=== PATIENT | female | born 1945 | race Caucasian/White ===

== ENCOUNTER → 2023-12-16 | Outpatient (CLI) | payer OTHER, SELFPAY ==
[2023-12-16 09:09] LABS: Basophils % (Auto) 1 % (0-2.5); Eosinophils # (Auto) 0.1 Thou/mm3 (0.0-0.5); Eosinophils % (Auto) 1 % (0-10); Hematocrit 41.5 % (36.0-46.0); Hemoglobin 13.5 g/dL (12.0-16.0); Immature Granulocytes % (Auto) 0 % (0-0); Immature Granulocytes Auto 0.01 Thou/mm3 (0.00-0.00); Immature Reticulocyte Fraction 13.1 % (3.0-15.9); Lymphocytes # (Auto) 1.2 Thou/mm3 (1.0-4.8); Lymphocytes % (Auto) 25 % (10-50); Mean Corpuscular HGB Conc 32.5 g/dl (31.0-37.0); Mean Corpuscular Hemoglobin 30.9 pg (25.0-35.0); Mean Corpuscular Volume 95 fL (80-100); Monocytes # (Auto) 0.3 Thou/mm3 (0.0-0.8); Monocytes % (Auto) 6 % (0-12); Neutrophils # (Auto) 3.3 Thou/mm3 (1.8-7.7); Neutrophils % (Auto) 68 % (37-80); Nucleated Red Blood Cell % 0 /100 WBC (0); Platelet Count 170 Thou/mm3 (140-440); RDW Standard Deviation 54.3 fL (36.4-46.3); Red Blood Count 4.37 Miln/mm3 (4.00-5.20); Reticulocyte % (Auto) 1.4 % (0.5-1.5); Reticulocyte Absolute Auto 59.4 Biln/L (25.0-75.0); Reticulocyte Hgb Content 35.2 pg (28.0-35.0); White Blood Count 4.9 Thou/mm3 (3.6-11.0)
[2023-12-16 09:41] LABS: Alanine Aminotransferase 9 U/L (10-49); Albumin, Serum 4.4 gm/dL (3.4-4.8); Albumin/Globulin Ratio 1.7 (1.2-2.2); Alkaline Phosphatase 44 U/L (46-116); Anion Gap 4 (7-16); Aspartate Amino Transferase 21 U/L (0-34); BUN/Creatinine Ratio 18 Ratio (12-20); Bilirubin,Total 0.6 mg/dL (0.3-1.2); Blood Urea Nitrogen 14 mg/dL (9-23); Calcium 9.7 mg/dL (8.3-10.6); Calcium (Corrected) 9.7 mg/dL (8.5-10.1); Carbon Dioxide 29.9 mMol/L (20.0-31.0); Chloride 105 mMol/L (98-107); Creatinine (Component) 0.8 mg/dL (0.6-1.3); Globulin 2.6 gm/dL (2.3-3.5); Glucose 119 mg/dL (74-106); Osmolality,Calculated 279 (275-295); Potassium 4.2 mMol/L (3.4-5.1); Sodium 139 mMol/L (136-145); eGFR > 60 See Note
[2023-12-16 09:42] LABS: Folate 17.09 ng/mL (>5.38); Vitamin B12 1248 pg/mL (211-911)
[2023-12-16 10:19] LABS: Ferritin 15 ng/mL (7.3-270.7); Iron 228 mcg/dL (50-170); Percent Iron Saturation 65 % (20-55); Total Iron Binding Capacity 347 mcg/dL (250-425); Unsaturated Iron Binding 119 (225-295)
== END | disposition home or self-care (01) ==
PROVIDERS: PCP Internal Medicine; Referring Provider Nurse Practitioner Family; Visit Provider Nurse Practitioner Family
DX: C50.212 Malignant neoplasm of upper-inner quadrant of left female breast (principal)
CPT/HCPCS: 36415; 80053; 82607; 82728; 82746; 83540; 83550; 85025; 85046

== ENCOUNTER 2023-12-17 11:23 | Outpatient (RCR) | payer OTHER, SELFPAY | END 2024-01-10 23:59 | disposition home or self-care (01) | LOC: SCTC 11:23 | PROVIDERS: PCP Internal Medicine; Referring Provider Internal Medicine; Visit Provider Nurse Practitioner Family | DX: D50.9 Iron deficiency anemia, unspecified (principal); C50.212 Malignant neoplasm of upper-inner quadrant of left female breast; Z17.0 Estrogen receptor positive status [ER+]; Z17.21 Progesterone receptor positive status; Z17.32 Human epidermal growth factor receptor 2 negative status; K64.9 Unspecified hemorrhoids; Z79.810 Long term (current) use of selective estrogen receptor modulators (SERMs); M85.88 Other specified disorders of bone density and structure, other site; I10 Essential (primary) hypertension; Z86.2 Personal history of diseases of the blood and blood-forming organs and certain disorders involving the immune mechanism | CPT/HCPCS: 99212; G0463 ==

== ENCOUNTER → 2024-02-16 | Outpatient (CLI) | payer OTHER, SELFPAY ==
[2024-02-16 12:06] LABS: Basophils % (Auto) 1 % (0-2.5); Eosinophils % (Auto) 1 % (0-10); Hematocrit 37.7 % (36.0-46.0); Hemoglobin 12.5 g/dL (12.0-16.0); Immature Granulocytes % (Auto) 0 % (0-0); Immature Granulocytes Auto 0.01 Thou/mm3 (0.00-0.00); Immature Reticulocyte Fraction 11.1 % (3.0-15.9); Lymphocytes # (Auto) 1.5 Thou/mm3 (1.0-4.8); Lymphocytes % (Auto) 18 % (10-50); Mean Corpuscular HGB Conc 33.2 g/dl (31.0-37.0); Mean Corpuscular Hemoglobin 31.3 pg (25.0-35.0); Mean Corpuscular Volume 95 fL (80-100); Monocytes # (Auto) 0.4 Thou/mm3 (0.0-0.8); Monocytes % (Auto) 5 % (0-12); Neutrophils # (Auto) 6.7 Thou/mm3 (1.8-7.7); Neutrophils % (Auto) 77 % (37-80); Nucleated Red Blood Cell % 0 /100 WBC (0); Platelet Count 124 Thou/mm3 (140-440); RDW Standard Deviation 46.1 fL (36.4-46.3); Red Blood Count 3.99 Miln/mm3 (4.00-5.20); Reticulocyte % (Auto) 1.5 % (0.5-1.5); Reticulocyte Absolute Auto 58.3 Biln/L (25.0-75.0); Reticulocyte Hgb Content 32.2 pg (28.0-35.0); White Blood Count 8.7 Thou/mm3 (3.6-11.0)
[2024-02-16 13:02] LABS: Alanine Aminotransferase 8 U/L (10-49); Albumin, Serum 4.1 gm/dL (3.4-4.8); Albumin/Globulin Ratio 1.8 (1.2-2.2); Alkaline Phosphatase 47 U/L (46-116); Anion Gap 7 (7-16); Aspartate Amino Transferase 18 U/L (0-34); BUN/Creatinine Ratio 18 Ratio (12-20); Bilirubin,Total 0.5 mg/dL (0.3-1.2); Blood Urea Nitrogen 16 mg/dL (9-23); Chloride 104 mMol/L (98-107); Creatinine (Component) 0.9 mg/dL (0.6-1.3); Globulin 2.3 gm/dL (2.3-3.5); Glucose 172 mg/dL (74-106); Osmolality,Calculated 280 (275-295); Potassium 4.4 mMol/L (3.4-5.1); Sodium 138 mMol/L (136-145); Total Protein 6.4 gm/dL (5.7-8.2); eGFR > 60 See Note
[2024-02-16 15:49] LABS: Ferritin 13 ng/mL (7.3-270.7); Total Iron Binding Capacity 351 mcg/dL (250-425)
[2024-02-16 15:59] LABS: Iron 54 mcg/dL (50-170); Percent Iron Saturation 15 % (20-55); Unsaturated Iron Binding 297 (225-295)
[2024-02-18 03:30] LABS: Folate 18.16 ng/mL (>5.38); Vitamin B12 400 pg/mL (211-911)
== END | disposition home or self-care (01) ==
LOC: SCTO 11:05
PROVIDERS: PCP Internal Medicine; Referring Provider Nurse Practitioner Family; Visit Provider Nurse Practitioner Family
DX: C50.212 Malignant neoplasm of upper-inner quadrant of left female breast (principal)
CPT/HCPCS: 36415; 80053; 82607; 82728; 82746; 83540; 83550; 85025; 85046

== ENCOUNTER 2024-02-17 10:25 | Outpatient (RCR) | payer OTHER, SELFPAY | END 2024-03-12 23:59 | disposition home or self-care (01) | LOC: SCTC 10:25 | PROVIDERS: PCP Internal Medicine; Referring Provider Internal Medicine; Visit Provider Nurse Practitioner Family | DX: C50.212 Malignant neoplasm of upper-inner quadrant of left female breast (principal); Z17.0 Estrogen receptor positive status [ER+]; Z17.21 Progesterone receptor positive status; Z17.32 Human epidermal growth factor receptor 2 negative status; Z90.12 Acquired absence of left breast and nipple; Z79.810 Long term (current) use of selective estrogen receptor modulators (SERMs); D50.9 Iron deficiency anemia, unspecified; K64.9 Unspecified hemorrhoids; K20.90 Esophagitis, unspecified without bleeding; M85.88 Other specified disorders of bone density and structure, other site; D69.6 Thrombocytopenia, unspecified | CPT/HCPCS: 99212; G0463 ==

== ENCOUNTER → 2024-04-21 | Outpatient (CLI) | payer OTHER, SELFPAY ==
[2024-04-21 08:33] LABS: Basophils % (Auto) 1 % (0-2.5); Eosinophils # (Auto) 0.1 Thou/mm3 (0.0-0.5); Eosinophils % (Auto) 3 % (0-10); Hematocrit 37.8 % (36.0-46.0); Hemoglobin 12.1 g/dL (12.0-16.0); Immature Granulocytes % (Auto) 0 % (0-0); Immature Granulocytes Auto 0.01 Thou/mm3 (0.00-0.00); Lymphocytes # (Auto) 1.3 Thou/mm3 (1.0-4.8); Lymphocytes % (Auto) 30 % (10-50); Mean Corpuscular Hemoglobin 30.5 pg (25.0-35.0); Mean Corpuscular Volume 95 fL (80-100); Monocytes # (Auto) 0.3 Thou/mm3 (0.0-0.8); Monocytes % (Auto) 7 % (0-12); Neutrophils # (Auto) 2.6 Thou/mm3 (1.8-7.7); Neutrophils % (Auto) 58 % (37-80); Nucleated Red Blood Cell % 0 /100 WBC (0); Platelet Count 159 Thou/mm3 (140-440); RDW Standard Deviation 49.1 fL (36.4-46.3); Red Blood Count 3.97 Miln/mm3 (4.00-5.20); White Blood Count 4.4 Thou/mm3 (3.6-11.0)
[2024-04-21 08:49] LABS: Folate 12.26 ng/mL (>5.38); Vitamin B12 659 pg/mL (211-911)
[2024-04-21 08:55] LABS: Ferritin 14 ng/mL (7.3-270.7); Iron 106 mcg/dL (50-170); Percent Iron Saturation 31 % (20-55); Total Iron Binding Capacity 340 mcg/dL (250-425); Unsaturated Iron Binding 234 (225-295)
[2024-04-21 09:07] LABS: Alanine Aminotransferase < 7 U/L (10-49); Albumin, Serum 3.8 gm/dL (3.4-4.8); Albumin/Globulin Ratio 1.7 (1.2-2.2); Alkaline Phosphatase 48 U/L (46-116); Anion Gap 7 (7-16); Aspartate Amino Transferase 19 U/L (0-34); BUN/Creatinine Ratio 21 Ratio (12-20); Bilirubin,Total 0.4 mg/dL (0.3-1.2); Blood Urea Nitrogen 17 mg/dL (9-23); Calcium 8.8 mg/dL (8.3-10.6); Carbon Dioxide 26.7 mMol/L (20.0-31.0); Chloride 108 mMol/L (98-107); Creatinine (Component) 0.8 mg/dL (0.6-1.3); Globulin 2.3 gm/dL (2.3-3.5); Glucose 100 mg/dL (74-106); Osmolality,Calculated 284 (275-295); Potassium 4.1 mMol/L (3.4-5.1); Sodium 142 mMol/L (136-145); Total Protein 6.1 gm/dL (5.7-8.2); eGFR > 60 See Note
== END | disposition home or self-care (01) ==
LOC: COPL 07:26
PROVIDERS: PCP Nurse Practitioner Family; Referring Provider Nurse Practitioner Family; Visit Provider Nurse Practitioner Family
DX: C50.212 Malignant neoplasm of upper-inner quadrant of left female breast (principal)
CPT/HCPCS: 36415; 80053; 82607; 82728; 82746; 83540; 83550; 85025

== ENCOUNTER 2024-04-26 09:35 | Outpatient (RCR) | payer OTHER, SELFPAY | END 2024-05-10 23:59 | disposition home or self-care (01) | LOC: SCTC 09:35 | PROVIDERS: PCP Internal Medicine; Referring Provider Nurse Practitioner Family; Visit Provider Nurse Practitioner Family | DX: C50.212 Malignant neoplasm of upper-inner quadrant of left female breast (principal); Z17.0 Estrogen receptor positive status [ER+]; Z17.21 Progesterone receptor positive status; Z17.32 Human epidermal growth factor receptor 2 negative status; Z90.12 Acquired absence of left breast and nipple; Z79.810 Long term (current) use of selective estrogen receptor modulators (SERMs); K64.9 Unspecified hemorrhoids; M85.88 Other specified disorders of bone density and structure, other site; Z86.2 Personal history of diseases of the blood and blood-forming organs and certain disorders involving the immune mechanism | CPT/HCPCS: 99212; G0463 ==

== ENCOUNTER → 2024-06-10 | Outpatient (CLI) | payer OTHER, SELFPAY ==
[2024-06-10 08:41] LABS: Basophils # (Auto) 0.1 Thou/mm3 (0.0-0.2); Basophils % (Auto) 1 % (0-2.5); Eosinophils # (Auto) 0.1 Thou/mm3 (0.0-0.5); Eosinophils % (Auto) 3 % (0-10); Hematocrit 37.8 % (36.0-46.0); Hemoglobin 12.5 g/dL (12.0-16.0); Immature Granulocytes % (Auto) 0 % (0-0); Immature Reticulocyte Fraction 13.3 % (3.0-15.9); Lymphocytes # (Auto) 1.7 Thou/mm3 (1.0-4.8); Lymphocytes % (Auto) 39 % (10-50); Mean Corpuscular HGB Conc 33.1 g/dl (31.0-37.0); Mean Corpuscular Hemoglobin 30.6 pg (25.0-35.0); Mean Corpuscular Volume 92 fL (80-100); Monocytes # (Auto) 0.4 Thou/mm3 (0.0-0.8); Monocytes % (Auto) 9 % (0-12); Neutrophils # (Auto) 2.1 Thou/mm3 (1.8-7.7); Neutrophils % (Auto) 49 % (37-80); Nucleated Red Blood Cell % 0 /100 WBC (0); Platelet Count 153 Thou/mm3 (140-440); Red Blood Count 4.09 Miln/mm3 (4.00-5.20); Reticulocyte % (Auto) 1.3 % (0.5-1.5); Reticulocyte Hgb Content 33.3 pg (28.0-35.0); White Blood Count 4.3 Thou/mm3 (3.6-11.0)
[2024-06-10 09:00] LABS: Ferritin 8 ng/mL (7.3-270.7); Folate 12.82 ng/mL (>5.38); Iron 43 mcg/dL (50-170); Percent Iron Saturation 11 % (20-55); Total Iron Binding Capacity 360 mcg/dL (250-425); Unsaturated Iron Binding 317 (225-295); Vitamin B12 454 pg/mL (211-911)
[2024-06-10 09:11] LABS: Alanine Aminotransferase < 7 U/L (10-49); Albumin, Serum 3.8 gm/dL (3.4-4.8); Albumin/Globulin Ratio 1.5 (1.2-2.2); Alkaline Phosphatase 55 U/L (46-116); Anion Gap 6 (7-16); Aspartate Amino Transferase 19 U/L (0-34); BUN/Creatinine Ratio 20 Ratio (12-20); Bilirubin,Total 0.4 mg/dL (0.3-1.2); Blood Urea Nitrogen 14 mg/dL (9-23); Calcium 9.1 mg/dL (8.3-10.6); Calcium (Corrected) 9.3 mg/dL (8.5-10.1); Carbon Dioxide 28.4 mMol/L (20.0-31.0); Chloride 109 mMol/L (98-107); Creatinine (Component) 0.7 mg/dL (0.6-1.3); Globulin 2.6 gm/dL (2.3-3.5); Glucose 106 mg/dL (74-106); Osmolality,Calculated 285 (275-295); Potassium 4.4 mMol/L (3.4-5.1); Sodium 143 mMol/L (136-145); Total Protein 6.4 gm/dL (5.7-8.2); eGFR > 60 See Note
== END | disposition home or self-care (01) ==
LOC: SCTO 07:07
PROVIDERS: PCP Internal Medicine; Referring Provider Nurse Practitioner Family; Visit Provider Nurse Practitioner Family
DX: C50.212 Malignant neoplasm of upper-inner quadrant of left female breast (principal)
CPT/HCPCS: 36415; 80053; 82607; 82728; 82746; 83540; 83550; 85025; 85046

== ENCOUNTER 2024-06-16 10:54 | Outpatient (RCR) | payer OTHER, SELFPAY | END 2024-07-10 23:59 | disposition home or self-care (01) | LOC: SCTC 10:54 | PROVIDERS: PCP Internal Medicine; Referring Provider Internal Medicine; Visit Provider Nurse Practitioner Family | DX: C50.212 Malignant neoplasm of upper-inner quadrant of left female breast (principal); Z17.0 Estrogen receptor positive status [ER+]; Z17.21 Progesterone receptor positive status; Z17.32 Human epidermal growth factor receptor 2 negative status; D50.9 Iron deficiency anemia, unspecified; M85.80 Other specified disorders of bone density and structure, unspecified site; Z79.810 Long term (current) use of selective estrogen receptor modulators (SERMs) | CPT/HCPCS: 99212; G0463 ==

== ENCOUNTER → 2024-07-27 | Outpatient (CLI) | payer OTHER, SELFPAY ==
[2024-07-27 08:36] LABS: Basophils % (Auto) 1 % (0-2.5); Eosinophils # (Auto) 0.1 Thou/mm3 (0.0-0.5); Eosinophils % (Auto) 2 % (0-10); Hematocrit 36.8 % (36.0-46.0); Hemoglobin 12.1 g/dL (12.0-16.0); Immature Granulocytes % (Auto) 0 % (0-0); Immature Granulocytes Auto 0.01 Thou/mm3 (0.00-0.00); Immature Reticulocyte Fraction 15.1 % (3.0-15.9); Lymphocytes # (Auto) 1.5 Thou/mm3 (1.0-4.8); Lymphocytes % (Auto) 33 % (10-50); Mean Corpuscular HGB Conc 32.9 g/dl (31.0-37.0); Mean Corpuscular Hemoglobin 30.6 pg (25.0-35.0); Mean Corpuscular Volume 93 fL (80-100); Monocytes # (Auto) 0.3 Thou/mm3 (0.0-0.8); Monocytes % (Auto) 7 % (0-12); Neutrophils # (Auto) 2.6 Thou/mm3 (1.8-7.7); Neutrophils % (Auto) 57 % (37-80); Nucleated Red Blood Cell % 0 /100 WBC (0); Platelet Count 162 Thou/mm3 (140-440); RDW Standard Deviation 49.7 fL (36.4-46.3); Red Blood Count 3.95 Miln/mm3 (4.00-5.20); Reticulocyte % (Auto) 1.6 % (0.5-1.5); Reticulocyte Absolute Auto 61.2 Biln/L (25.0-75.0); Reticulocyte Hgb Content 33.8 pg (28.0-35.0); White Blood Count 4.6 Thou/mm3 (3.6-11.0)
[2024-07-27 08:52] LABS: Ferritin 10 ng/mL (7.3-270.7); Iron 83 mcg/dL (50-170); Percent Iron Saturation 23 % (20-55); Total Iron Binding Capacity 359 mcg/dL (250-425); Unsaturated Iron Binding 276 (225-295)
[2024-07-27 08:53] LABS: Folate 13.84 ng/mL (>5.38); Vitamin B12 1305 pg/mL (211-911)
[2024-07-27 09:19] LABS: Alanine Aminotransferase < 7 U/L (10-49); Albumin, Serum 3.7 gm/dL (3.4-4.8); Albumin/Globulin Ratio 1.5 (1.2-2.2); Alkaline Phosphatase 45 U/L (46-116); Anion Gap 10 (7-16); Aspartate Amino Transferase 25 U/L (0-34); BUN/Creatinine Ratio 13 Ratio (12-20); Bilirubin,Total 0.4 mg/dL (0.3-1.2); Blood Urea Nitrogen 10 mg/dL (9-23); Calcium 8.8 mg/dL (8.3-10.6); Carbon Dioxide 25.1 mMol/L (20.0-31.0); Chloride 107 mMol/L (98-107); Creatinine (Component) 0.8 mg/dL (0.6-1.3); Globulin 2.4 gm/dL (2.3-3.5); Glucose 104 mg/dL (74-106); Osmolality,Calculated 282 (275-295); Potassium 4.9 mMol/L (3.4-5.1); Sodium 142 mMol/L (136-145); Total Protein 6.1 gm/dL (5.7-8.2); eGFR > 60 See Note
== END | disposition home or self-care (01) ==
LOC: SCTO 07:29
PROVIDERS: PCP Internal Medicine; Referring Provider Nurse Practitioner Family; Visit Provider Nurse Practitioner Family
DX: C50.212 Malignant neoplasm of upper-inner quadrant of left female breast (principal)
CPT/HCPCS: 36415; 80053; 82607; 82728; 82746; 83540; 83550; 85025; 85046

== ENCOUNTER → 2024-08-09 | Outpatient (CLI) | payer OTHER, SELFPAY ==
--- NOTE | 2024-08-09 11:00 | XR_ITS ---
Examination: Screening digital mammography, unilateral right Computer aided detection 3-D breast Tomosynthesis, unilateral Date and time of exam: August 09, 2024 1038 hours Compared to mammograms dating to April 30, 2018 Indication: Screening Technique: Nonmagnified MLO, CC views of the right breast to been obtained, reconstructed from 3-D Tomosynthesis images. R2 computer aided detection program utilized for evaluation of suspicious masses and/or abnormal calcifications. 3-D Tomosynthesis images obtained. Findings: The breast is heterogeneously dense, which may obscure small masses 15 mm focal asymmetry outer right breast anterior depth Breast biopsy marker retroareolar region right breast Impression: BI-RADS Category 0: Incomplete: Need additional imaging evaluation Recommend follow-up spot tomographic views of 15 mm focal asymmetry outer right breast anterior depth as well as right breast sonography to complete the workup.
== END | disposition home or self-care (01) ==
LOC: CDIM 10:26
PROVIDERS: Referring Provider Nurse Practitioner Family; Visit Provider Nurse Practitioner Family
DX: Z12.31 Encounter for screening mammogram for malignant neoplasm of breast (principal); N64.89 Other specified disorders of breast; C50.212 Malignant neoplasm of upper-inner quadrant of left female breast
CPT/HCPCS: 77063; 77067

== ENCOUNTER 2024-08-18 08:45 | Outpatient (RCR) | payer OTHER, SELFPAY | END 2024-09-09 23:59 | disposition home or self-care (01) | LOC: SCTC 08:45 | PROVIDERS: PCP Internal Medicine; Referring Provider Internal Medicine; Visit Provider Nurse Practitioner Family | DX: C50.212 Malignant neoplasm of upper-inner quadrant of left female breast (principal); Z17.0 Estrogen receptor positive status [ER+]; Z17.21 Progesterone receptor positive status; Z17.32 Human epidermal growth factor receptor 2 negative status; Z90.12 Acquired absence of left breast and nipple; Z79.810 Long term (current) use of selective estrogen receptor modulators (SERMs); Z86.2 Personal history of diseases of the blood and blood-forming organs and certain disorders involving the immune mechanism; M85.88 Other specified disorders of bone density and structure, other site | CPT/HCPCS: 99212; G0463 ==

== ENCOUNTER → 2024-09-14 | Outpatient (CLI) | payer OTHER, SELFPAY ==
[2024-09-14 09:28] LABS: Albumin, Serum 4.3 gm/dL (3.4-4.8); Anion Gap 9 (7-16); BUN/Creatinine Ratio 20 Ratio (12-20); Blood Urea Nitrogen 14 mg/dL (9-23); Calcium 9.9 mg/dL (8.3-10.6); Calcium (Corrected) 9.9 mg/dL (8.5-10.1); Carbon Dioxide 27.3 mMol/L (20.0-31.0); Chloride 108 mMol/L (98-107); Creatinine (Component) 0.7 mg/dL (0.6-1.3); Glucose 106 mg/dL (74-106); Osmolality,Calculated 287 (275-295); Phosphorous 3.6 mg/dL (2.4-5.1); Potassium 4.0 mMol/L (3.4-5.1); Sodium 144 mMol/L (136-145); eGFR > 60 See Note
[2024-09-14 09:29] LABS: Parathyroid Hormone Intact 56.1 pg/ml (18.5-88.0)
[2024-09-14 11:28] LABS: Basophils # (Auto) 0.1 Thou/mm3 (0.0-0.2); Basophils % (Auto) 1 % (0-2.5); Eosinophils # (Auto) 0.1 Thou/mm3 (0.0-0.5); Eosinophils % (Auto) 2 % (0-10); Hematocrit 43.5 % (36.0-46.0); Hemoglobin 13.6 g/dL (12.0-16.0); Immature Granulocytes Auto 0.01 Thou/mm3 (0.00-0.00); Lymphocytes # (Auto) 2.2 Thou/mm3 (1.0-4.8); Lymphocytes % (Auto) 35 % (10-50); Mean Corpuscular HGB Conc 31.3 g/dl (31.0-37.0); Mean Corpuscular Hemoglobin 30.1 pg (25.0-35.0); Mean Corpuscular Volume 96 fL (80-100); Monocytes # (Auto) 0.4 Thou/mm3 (0.0-0.8); Monocytes % (Auto) 7 % (0-12); Neutrophils # (Auto) 3.5 Thou/mm3 (1.8-7.7); Neutrophils % (Auto) 55 % (37-80); Nucleated Red Blood Cell # 0.00 Thou/mm3 (0.00-0.00); Nucleated Red Blood Cell % 0 /100 WBC (0); Platelet Count 140 Thou/mm3 (140-440); RDW Standard Deviation 52.5 fL (36.4-46.3); Red Blood Count 4.52 Miln/mm3 (4.00-5.20); White Blood Count 6.4 Thou/mm3 (3.6-11.0)
== END | disposition home or self-care (01) ==
LOC: COPL 07:52
PROVIDERS: PCP Internal Medicine; Referring Provider Internal Medicine; Visit Provider Internal Medicine
DX: E21.0 Primary hyperparathyroidism (principal); I10 Essential (primary) hypertension
CPT/HCPCS: 36415; 80069; 83970; 85025

== ENCOUNTER 2024-09-21 09:02 | Outpatient (RCR) | payer OTHER, SELFPAY | END 2024-10-10 23:59 | disposition home or self-care (01) | LOC: SCTC 09:02 | PROVIDERS: PCP Internal Medicine; Referring Provider Internal Medicine; Visit Provider Nurse Practitioner Family | DX: C50.212 Malignant neoplasm of upper-inner quadrant of left female breast (principal); Z17.0 Estrogen receptor positive status [ER+]; Z17.21 Progesterone receptor positive status; Z17.32 Human epidermal growth factor receptor 2 negative status; Z90.12 Acquired absence of left breast and nipple; Z79.810 Long term (current) use of selective estrogen receptor modulators (SERMs); Z86.2 Personal history of diseases of the blood and blood-forming organs and certain disorders involving the immune mechanism; H91.90 Unspecified hearing loss, unspecified ear; M85.88 Other specified disorders of bone density and structure, other site | CPT/HCPCS: 99212; G0463 ==

== ENCOUNTER → 2024-11-16 | Outpatient (CLI) | payer OTHER, SELFPAY ==
--- NOTE | 2024-11-16 09:00 | XR_ITS ---
Examination: Breast ultrasound, unilateral, right Date and time of exam: November 16, 2024, 0955 hours INDICATIONS: Mammogram August 09, 2024 mm focal asymmetry outer right breast anterior depth Technique: Real-time sahu scale ultrasonographic imaging performed right breast including all 4 quadrants as well as nipple retroareolar and axillary region. Findings: 10:00 nodule lobular margins 7 x 5 mm IMPRESSION: BI-RADS Category 3: Probably benign findings 1 additional 6-month right breast sonogram follow-up is needed to document stability of right breast nodule described above
--- NOTE | 2024-11-16 09:30 | XR_ITS ---
Examination: Diagnostic digital mammography, unilateral, right Computer aided detection 3-D breast Tomosynthesis, unilateral Date and time of exam: December 09, 2024, 1038 hours INDICATIONS: Mammogram August 09, 2024 15 mm focal asymmetry outer right breast anterior depth Technique: Nonmagnified MLO, CC views of the right breast have been obtained, reconstructed from 3-D Tomosynthesis images. R2 computer aided detection program utilized for evaluation of suspicious masses and/or abnormal calcifications. 3-D Tomosynthesis images obtained. Findings: The breast is heterogeneously dense, which may obscure small masses No suspicious masses depicted on the spot compression views Impression: BI-RADS category 2: Benign findings Recommend yearly follow-up mammography Please see the right breast report and recommendations today, recommend 6-month right breast sonogram
== END | disposition home or self-care (01) ==
LOC: CDIM 09:21
PROVIDERS: Referring Provider Nurse Practitioner Family; Visit Provider Nurse Practitioner Family
DX: R92.321 Mammographic fibroglandular density, right breast (principal); N63.11 Unspecified lump in the right breast, upper outer quadrant; C50.212 Malignant neoplasm of upper-inner quadrant of left female breast
CPT/HCPCS: 76641; 77061; 77065; G0279

== ENCOUNTER 2024-12-13 21:17 | Emergency (ER) | payer OTHER, SELFPAY ==
[2024-12-13 21:17] VITALS: BMI 27.2
[2024-12-13 22:00] VITALS: BP 153/80; PULSE 80; RESP 18; TEMP 36.6; O2SAT 95
--- NOTE | 2024-12-13 22:16 | XR_ITS ---
EXAMINATION: PA chest single view: TECHNIQUE: Upright PA chest single view Date and time: November 11, 2024: 10:39 p.m. INDICATIONS: Chest pain today. FINDINGS: Herniation of a major portion of the stomach into the hemithorax Mild enlargement cardiac contour Epidural spinal leads No pneumonia or pulmonary edema IMPRESSION: Large retrocardiac gastric hernia
--- NOTE | 2024-12-13 22:16 | EKG_ITS ---
[facility] Test Date: 2024-12-13 Pat Name: NORMAN FELDER Department: Room: - Gender: Female Business Support Professional: : 1945 Requested By: Madhu Schwartz Order Number: [id number] Reading MD: Madhu Schwartz Measurements Intervals [place] Rate: 81 P: 41 ME: 155 QRS: -65 QRSD: 138 T: 98 QT: 435 QTc: 506 Interpretive Statements SINUS RHYTHM POSSIBLE LEFT ATRIAL ENLARGEMENT [-0.1mV P-WAVE IN V1/V2] LEFT AXIS DEVIATION [QRS AXIS < -30] INTRAVENTRICULAR CONDUCTION DELAY [130+ ms QRS DURATION] LEFT VENTRICULAR HYPERTROPHY AND ST-T CHANGE [VOLTAGE CRITERIA PLUS ST/T ABNORMALITY] POSSIBLE ANTERIOR MYOCARDIAL INFARCTION , OF INDETERMINATE AGE [30 ms Q WAVE IN V3/V4, OR R < 0.2 mV IN V4] Compared to ECG 11/07/2023 11:25:41 Intraventricular conduction delay now present Left ventricular hypertrophy now present ST (T wave) deviation now present Myocardial infarct finding now present Left bundle-branch block no longer present /store/S0/[id number]/ecg/[id number].pdf
--- NOTE | 2024-12-13 22:17 | EDRME_ITS ---
Rapid Medical Screening Exam RME Arrival date/time: 12/13/24 21:17 Epigastric and upper abdominal pain HPI onset approximately 3 hours ago after eating a meal. The patient is in considerable discomfort denies vomiting but son at bedside states the patient vomited several times she is acting mildly confused. Patient is on 4 medications denies diarrhea or constipation. Son informs that patient had a ulcer that was taken care of . PE: Abdomen: Patient exquisitely tender in the epigastrium with reflexive gu arding. No lower abdominal pain with palpation. There is also grimacing with pressure on the xiphoid process. Chief Complaint: Abdominal Pain Time Seen by Provider: 12/13/24 22:13 Vital signs: Vital Signs Temperature 97.9 F 12/13/24 22:00 Pulse Rate 80 12/13/24 22:00 Respiratory Rate 18 12/13/24 22:00 Blood Pressure 153/80 H 12/13/24 22:00 Pulse Oximetry (%) 95 12/13/24 22:00 Oxygen Delivery Method Room Air 12/13/24 22:00 Exam: Gastric ulcer see RME see note Clinical Impression: Gastric ulcer
[2024-12-13 22:32] LABS: Basophils # (Auto) 0.0 Thou/mm3 (0.0-0.2); Basophils % (Auto) 0 % (0-2.5); Eosinophils # (Auto) 0.0 Thou/mm3 (0.0-0.5); Eosinophils % (Auto) 0 % (0-10); Hematocrit 41.2 % (36.0-46.0); Hemoglobin 13.6 g/dL (12.0-16.0); Immature Granulocytes Auto 0.03 Thou/mm3 (0.00-0.00); Lymphocytes # (Auto) 0.9 Thou/mm3 (1.0-4.8); Lymphocytes % (Auto) 9 % (10-50); Mean Corpuscular HGB Conc 33.0 g/dl (31.0-37.0); Mean Corpuscular Hemoglobin 30.6 pg (25.0-35.0); Mean Corpuscular Volume 93 fL (80-100); Monocytes # (Auto) 0.2 Thou/mm3 (0.0-0.8); Monocytes % (Auto) 2 % (0-12); Neutrophils # (Auto) 9.8 Thou/mm3 (1.8-7.7); Neutrophils % (Auto) 89 % (37-80); Nucleated Red Blood Cell # 0.00 Thou/mm3 (0.00-0.00); Nucleated Red Blood Cell % 0 /100 WBC (0); Platelet Count 128 Thou/mm3 (140-440); RDW Standard Deviation 46.8 fL (36.4-46.3); Red Blood Count 4.45 Miln/mm3 (4.00-5.20); White Blood Count 11.1 Thou/mm3 (3.6-11.0)
--- NOTE | 2024-12-13 22:35 | XR_ITS ---
Examination: CT chest, without intravenous contrast. CT abdomen, without intravenous contrast. CT pelvis, without intravenous contrast. 2-D sagittal and coronal reconstructions. 3-D reconstructions. Date and time of exam: December 14, 2024, 0043 hours INDICATIONS: Chest pain abdominal pain vomiting beginning today CTDI vol (mgy) 5.77 DLP (MGycm) 340 Technique: Multiple CT images, 3.0 mm slice thickness, obtained chest, abdomen, pelvis, with the high-resolution 64 slice scanner.. Sagittal and coronal 2-D reconstructions are obtained. 3-D reconstructions Low dose protocols were performed. One or more of the following dose reduction techniques were used; automated exposure control, adjustment of the mA and/or KV according to patient size, use of iterative reconstruction technique. Findings: Thoracic aortic calcification no aneurysmal dilatation Pulmonary artery segments are not enlarged Large diaphragmatic defect containing stomach and colon with atelectasis in the right lower lung zone No pulmonary edema No visualized liver or splenic lesion No gallstones No pancreatic mass No renal or ureteral calculi, no hydronephrosis Aortic calcification no aneurysmal dilatation No bowel obstruction No pericecal inflammatory change Distended urinary bladder Absent uterus Severe osteopenia Severe lumbar dextroscoliosis Moderate to advanced narrowing hip joint Epidural pain leads project within the thoracic spinal canal Advanced degenerative disc disease L3-L4 L2-L3 L1-L2 IMPRESSION: Large diaphragmatic defect containing stomach and colon with atelectasis in the right lower lobe No renal or ureteral calculi, no hydronephrosis No CT findings of appendicitis bowel obstruction or diverticulitis
--- NOTE | 2024-12-13 22:35 | XR_ITS ---
Examination: CT brain head without contrast. 2-D sagittal coronal reconstructions Date and time of exam: December 14, 2024, 0040 hours INDICATIONS: Onset altered mental status today CTDI: vol (mGy): 42.5 DLP: (mGycm): 784 Technique: Multiple CT axial sections of the brain have been obtained, 5 mm slice thickness. Contrast has not been administered. 2-D sagittal, coronal reconstructions have been obtained Low dose protocols were performed. One or more of the following dose reduction techniques were used; automated exposure control, adjustment of the mA and/or KV according to patient size, use of iterative reconstruction technique. Findings: No significant ventricular enlargement. Intra-axial or extra-axial hemorrhage density is not seen. No mass effect or midline shift Basal cisterns are not remarkable. Fourth ventricle is midline. Cranial vault intact. Impression: Negative for acute hemorrhage, mass effect or midline shift Advise clinical correlation and follow-up accordingly
[2024-12-13 22:48] LABS: INR 1.0 (0.9-1.3); Partial Thromboplastin Time 23.9 Seconds (22.0-36.0); Prothrombin Time 11.1 Seconds (9.0-12.2)
[2024-12-13 22:49] LABS: B-Type Natriuretic Peptide 72 pg/mL (0-100)
[2024-12-13] MEDS: ONDANSETRON INJ 2 MG/ML INJ 2 ML 4 MG IVP (22:57)
[2024-12-13] MEDS: MORPHINE SULF INJ 4 MG/ML VIAL 2 MG IV (22:58)
--- NOTE | 2024-12-13 22:58 | PD.EDADDENDU ---
Emergency Room Addendum <Chantal Montenegro - Last Filed: 12/14/24 04:44> Addendum Narrative: I took over the care from previous shift mid-level provider at 11 PM on 12/13/2024. See previous notes for complete H & P and ED course. I reviewed all diagnostic test results. My interpretation of the EKG is sinus rhythm with no acute ST?T changes. My interpretation of the chest x-ray is large retrocardiac gastric hernia. My review of the Head/Brain CT report is NAD. My review of the Chest/Abdomen/Pelvis CT report is large hiatus hernia containing the entire stomach and portion of the colon. My review of the Gall Bladder US report is no acute findings. Blood tests and urine tests unremarkable. Covid: Negative. Diagnoses include: GERD Treatment here included IVF Zofran 4 mg IV Morphine 4 mg IV Pepcid 20 mg IV Protonix 40 mg IV She felt much better. Recommended outpatient care. Based on my best medical judgment, made decision no further evaluation or treatment indicated at this time. Patient understands and agrees to the discharge instructions customized and printed, see below. Discharge instructions from Dr. Blake: ?After evaluation, your symptoms are due to stomach ulcer (see attached handout). There is no emergency such as appendicitis needing emergent surgery. ?To help heal the ulcer, take Omeprazole 40 mg every morning and Famotidine 40 mg at bedtime for a month. ?Zofran for nausea/vomiting. Clear liquid diet for 24 hours. Then slowly advance diet as tolerated. ?Avoid food and beverages that can trigger and worsen ulcers. See attached handout. ?See a private doctor on 12/15/2024. Ask to review all test results and official radiology reports, to make sure you receive all necessary follow-ups and monitoring. To make sure there is no serious intra-abdominal condition, ask for help with more investigation not available here in the ER. Such as EGD or scoping the stomach, colonoscopy or scoping the colon, and referral to see popcorn candy maker. And ask for referral to see a surgeon, to discuss elective surgery of the hiatal hernia. ?Seek immediate medical care with worsening or with any concerns. Harvinder Blake MD <Harvinder Blake MD - Last Filed: 12/13/24 23:10> Addendum Narrative: I took over the care from previous shift mid-level provider at 11 PM on 12/13/2024. See previous notes for complete H & P and ED course. I reviewed all diagnostic test results. My interpretation of the EKG is sinus rhythm with no acute ST?T changes. My interpretation of the chest x-ray is My review of the CT report is Blood tests and urine tests Covid/Influenza: Diagnoses include: Treatment here included Not yet done: I discussed the case with our hospitalist. About the presentation and exam and diagnostics and treatments here. And need of further care in the hospital. Will accept the patient. Not yet done: Based on my best medical judgment, made decision no further evaluation or treatment indicated at this time. Patient understands and agrees to the discharge instructions customized and printed, see below. Harvinder Blake MD
[2024-12-13] MEDS: FAMOTIDINE INJ 10 MG/ML VIAL 2 ML 20 MG IVP (23:03)
[2024-12-13 23:09] LABS: Alanine Aminotransferase 8 U/L (10-49); Albumin, Serum 4.7 gm/dL (3.4-4.8); Albumin/Globulin Ratio 1.9 (1.2-2.2); Alkaline Phosphatase 44 U/L (46-116); Anion Gap 13 (7-16); Aspartate Amino Transferase 25 U/L (0-34); BUN/Creatinine Ratio 16 Ratio (12-20); Bilirubin,Total 0.6 mg/dL (0.3-1.2); Blood Urea Nitrogen 11 mg/dL (9-23); Calcium 9.4 mg/dL (8.3-10.6); Calcium (Corrected) 9.4 mg/dL (8.5-10.1); Carbon Dioxide 24.0 mMol/L (20.0-31.0); Chloride 105 mMol/L (98-107); Creatinine (Component) 0.7 mg/dL (0.6-1.3); Estimated Creatinine Clearance 50.2 mL/min (>60); Globulin 2.5 gm/dL (2.3-3.5); Glucose 193 mg/dL (74-106); Lipase 29 U/L (12-53); Magnesium 2.3 mg/dL (1.6-2.6); Osmolality,Calculated 287 (275-295); Potassium 4.0 mMol/L (3.4-5.1); Sodium 142 mMol/L (136-145); Total Protein 7.2 gm/dL (5.7-8.2); eGFR > 60 See Note
[2024-12-13] MEDS: RINGERS LACTATED 1000 ML 1,000 ML IV (23:10)
[2024-12-13 23:19] LABS: Lactate (Lactic Acid) 3.0 mMol/L (0.4-2.0)
[2024-12-13 23:24] LABS: Beta Hydroxybutyrate 0.1 mmol/L (<0.6)
[2024-12-13 23:33] LABS: Amylase 58 U/L (30-118); Bilirubin,Direct 0.2 mg/dL (0.0-0.3); C-Reactive Protein < 0.5 mg/dL (0.0-0.9); Procalcitonin < 0.04 ng/ml (0.0-0.49); Thyroid Stimulating Hormone 0.93 uIU/mL (0.55-4.78); Troponin I < 0.020 ng/mL (0.0-0.045)
--- NOTE | 2024-12-14 00:04 | XR_ITS ---
Examination: Abdomen sonogram, Limited Date and time of exam: 12/14/2024, 12:11 a.m. INDICATION: Right upper quadrant pain, nausea COMPARISON: None Technique: Real-time sahu scale transabdominal sonographic images of the upper abdomen obtained. FINDINGS: Gallbladder: No cholelithiasis or sludge. No gallbladder wall thickening or pericholecystic fluid. No reported pain with direct transducer pressure over the gallbladder. The common bile duct measures 0.3 cm. The liver is normal in size and demonstrates smooth contours. Diffuse increased echotexture of the liver parenchyma is seen. No mass identified. Patent main portal vein with hepatopetal flow. Patent IVC. IMPRESSION: Negative ultrasound for cholelithiasis, acute cholecystitis or biliary ductal obstruction. Diffusely echogenic liver parenchyma is nonspecific. While the finding could represent hepatic steatosis, other differential diagnostic considerations include chronic hepatitis, fibrosis and hemachromatosis in the appropriate clinical settings.
[2024-12-14] MEDS: SODIUM CHLORIDE 0.9% 1000 ML 1,000 ML 200 ML IV (01:14)
--- NOTE | 2024-12-14 01:23 | PRELIM_ITS ---
CT scan of the head without intravenous contrast (axial sections with sagittal and coronal reformats) December 14, 2024 0040 hours Clinical history: AMS No prior study is available for comparison. Findings: There is no evidence of intracranial hemorrhage, mass effect or midline shift. There are mild to moderate periventricular and subcortical white matter hypodensities, likely representing chronic small vessel ischemia. There is mild volume loss. The calvarium is unremarkable. The mastoid air cells and the visualized paranasal sinuses are clear. Impression: No evidence of intracranial hemorrhage, mass effect or midline shift. Periventricular chronic small vessel ischemia and volume loss. Report Electronically Signed By: Noah Lay 12/14/2024 1:23:03 AM [EST]
--- NOTE | 2024-12-14 01:27 | PRELIM_ITS ---
Gallbladder ultrasound with Doppler and wave Doppler spectral analysis. December 14, 2024 0011 hours Clinical history: RUQ tenderness Comparison: None available at the time of this report. Findings: The visualized liver is normal in echogenicity without mass or ductal dilatation. No gallbladder calculus, wall thickening or pericholecystic fluid is identified. The common duct is normal in caliber at 3.0 mm. No free fluid is demonstrated on the submitted images. The portal vein is patent with hepatopetal flow and normal wave Doppler spectral analysis. Pérez sign is not available at the time of this report. Impression: Unremarkable gallbladder sonogram. No evidence of acute cholecystitis. Report Electronically Signed By: Marlon Galicia 12/14/2024 1:26:58 AM [EST]
[2024-12-14 01:36] VITALS: BP 107/83; PULSE 78; RESP 14; TEMP 37.1; O2SAT 99
[2024-12-14 02:00] LABS: Collection Type, Urine Clean Catch
[2024-12-14 02:04] LABS: Amorphous Crystals,Urine Present (Absent); Bilirubin,Urine Negative (Negative); Blood,Urine Trace (Negative); Clarity,Urine Clear (Clear/Hazy); Color,Urine Lt-Yellow (Lt Yel-Yel); Culture Indicated,Urine Not Indicated; Glucose, Urine 4+ (Negative); Ketones,Urine 3+ (Negative); Leukocyte Esterase,Urine Negative (Negative); Nitrite,Urine Negative (Negative); PH,Urine 7.5 (5.0-7.0); Protein,Urine Trace (Neg - Trace); RBC,Urine 6 /hpf (0-3); Specific Gravity,Urine 1.012 (1.001-1.035); Squamous Epithelial Cell,Urine 1 /hpf (0-5); Urobilinogen,Urine Negative mg/dL (0.0-1.0); WBC,Urine 2 /hpf (0-5)
--- NOTE | 2024-12-14 02:10 | PRELIM_ITS ---
CT scan of the chest, abdomen and pelvis without intravenous contrast (axial sections with sagittal and coronal reformats) December 14, 2024 0041 hours Clinical History: Chest/abdominal pain. Comparison: Ultrasound performed earlier today Findings: Bilateral basal lungs atelectasis. Right lower lobe consolidation. There is no pleural effusion or pneumothorax. The aorta is unremarkable on this noncontrast study. No evidence of mediastinal mass or lymphadenopathy. There is no pericardial effusion. The liver, gallbladder, spleen, pancreas, adrenals and kidneys are unremarkable on this noncontrast study. No evidence of bowel obstruction. No evidence of appendicitis The urinary bladder is nondistended, limited evaluation. There is no free fluid or free air. Degenerative changes of the imaged portions of the spine. Chronic multilevel disc disease. No acute fractures. Right convex scoliosis. Spinal stimulator noted. Vascular calcifications. Large hiatus hernia containing the entire stomach and portion of the colon. Impression: Large hiatus hernia containing the entire stomach and portion of the colon. Right lower lobe consolidation, atelectasis versus pneumonia. Report Electronically Signed By: Marlon Galicia 12/14/2024 2:34:42 AM [EST]
[2024-12-14 02:17] LABS: Reflex Lactate? Y
[2024-12-14 02:50] LABS: Lactic Acid, 3 HR 2.8 mMol/L (0.4-2.0)
[2024-12-14 02:52] VITALS: BP 108/85; PULSE 80; RESP 14; TEMP 37; O2SAT 99
--- NOTE | 2024-12-22 22:54 | PD.EDABDPN ---
ED Abdominal Pain RME/HPI General Chief Complaint: Abdominal Pain Stated complaint: ABD PAIN /VOMITING Time seen by provider: 12/13/24 22:13 Arrival date/time: 12/13/24 21:17 RME / HPI RME / HPI narrative: 12/13/24 21:17 Epigastric and upper abdominal pain HPI onset approximately 3 hours ago after eating a meal. The patient is in considerable discomfort denies vomiting but son at bedside states the patient vomited several times she is acting mildly confused. Patient is on 4 medications denies diarrhea or constipation. Son informs that patient had a ulcer that was taken care of . PE: Abdomen: Patient exquisitely tender in the epigastrium with reflexive guarding. No lower abdominal pain with palpation. There is also grimacing with pressure on the xiphoid process. See [facility] for Dr. Blake's HPI Documentation. Exam: Gastric ulcer see RME see note Impression: Gastric ulcer Related Data Home Medications ?Medication ?Instructions ?Recorded ?Confirmed amlodipine 5 mg tablet (Norvasc) 5 mg PO QDAY #0 tabs 07/28/14 11/10/23 calcitriol 0.25 mcg capsule 0.25 mcg PO MWF 05/29/20 11/10/23 gabapentin 600 mg tablet 600 mg PO TID 04/30/21 11/10/23 Held on 11/10/23. Instructions: Resume on 11/11/23. hydrocodone 10 mg-acetaminophen 0.5 tab PO DAILY PRN Pain 11/10/23 11/10/23 325 mg tablet Held on 11/10/23. Instructions: Resume on 11/11/23. tamoxifen 20 mg tablet 20 mg PO DAILY 11/10/23 11/10/23 Previous Rx's ?Medication ?Instructions ?Recorded famotidine 40 mg tablet 40 mg PO .bedtime #30 tabs 12/14/24 omeprazole 40 mg capsule,delayed 40 mg PO QDAY #30 caps 12/14/24 release ondansetron 4 mg disintegrating 4 mg PO TID PRN nausea and 12/14/24 tablet vomiting 30 days #10 tabs Allergies Allergy/AdvReac Type Severity Reaction Status Date / Time tramadol AdvReac Mild Palpitation Verified 11/10/23 10:52 s VITAMIN B12 INJECTION Allergy Severe Swelling Uncoded 11/10/23 10:52 of Lip/Tongue/Throat Review of Systems Review of Systems Systems Reviewed: All systems reviewed, normal except as documented Past Medical History Past Medical History NEUROLOGIC: Positive Peripheral Neuropathy CARDIAC: Positive Hypertension GASTROINTESTINAL: Positive Ulcer (GI BLEED) and Hiatal Hernia REPRODUCTIVE: Positive Breast Cancer (left) and Previous Pregnancies MUSCULOSKELETAL: Positive Musculoskeletal Disorders (SPINAL STENOSIS), Arthritis and Scoliosis ENT: Positive Cataracts (yancy) and Deafness ([place]) OTHER HISTORY: Positive Hospitalization (bleeding ulcer), Chicken Pox, Measles, Mumps, Cancer and Breast Cancer (left) Surgical History SURGICAL: Positive Abdominal Surgery (GI BLEED), Mastectomy (LEFT) and Hysterectomy ED Exam Narrative Physical exam: See [facility] for Dr. Blake's Physical Exam Documentation. Course Quality Measures none Orders Category Date Time Status Bedside COVID-19 Antigen Test NOW Care 12/13/24 22:33 Completed EKG (ED ONLY) *Do not use* NOW Care 12/13/24 22:16 Completed Saline [Insert IV] NOW Care 12/13/24 22:33 Completed Straight [In and Out Catheter] X1 Care 12/13/24 22:[address] chest abdomen pelvis wo Stat Exams 12/13/24 22:[address] head/brain wo con Stat Exams 12/13/24 22:35 Completed EKG (ED Only) Stat Exams 12/13/24 22:16 Draft US gall bladder Stat Exams 12/14/24 00:04 Completed XR chest 1V Stat Exams 12/13/24 22:16 Completed Amylase Stat Lab 12/13/24 22:23 Completed B-Type Natriuretic Peptide Stat Lab 12/13/24 22:23 Completed Beta Hydroxybutyrate Stat Lab 12/13/24 23:14 Completed Bilirubin,Direct Stat Lab 12/13/24 22:23 Completed Blood Culture (Lab) Stat Lab 12/13/24 23:14 Completed C-Reactive Protein Stat Lab 12/13/24 22:23 Completed CBC Stat Lab 12/13/24 22:23 Completed Comprehensive Metabolic Panel Stat Lab 12/13/24 22:23 Completed Lactate (Lactic Acid) Stat Lab 12/13/24 23:14 Completed Lactic Acid, 3 HR Stat Lab 12/14/24 02:34 Completed Lipase Stat Lab 12/13/24 22:23 Completed Magnesium Stat Lab 12/13/24 22:23 Completed Partial Thromboplastin Time Stat Lab 12/13/24 22:23 Completed Procalcitonin Stat Lab 12/13/24 22:23 Completed Prothrombin Time with INR Stat Lab 12/13/24 22:23 Completed Thyroid Stimulating Hormone Stat Lab 12/13/24 22:23 Completed Troponin I Stat Lab 12/13/24 22:23 Completed UA, C/S IF [Urinalysis, C/S if Indicated] Stat Lab 12/14/24 00:51 Completed Famotidine Inj [Pepcid Inj] Med 12/13/24 22:34 Discontinued 20 mg IVP X1 ONE Morphine* Inj Med 12/13/24 22:34 Discontinued 2 mg IV X1 ONE Ondansetron Inj [Zofran Inj] Med 12/13/24 22:34 Discontinued 4 mg IVP X1 ONE Pantoprazole Inj [Protonix Inj] Med 12/13/24 22:34 Discontinued 40 mg IVP X1 ONE Ringers Lactated 1000 ml [Lactated Ringers] 1,000 ml Med 12/13/24 22:33 Discontinued IV 1,000 mls/hr Sodium Chloride 0.9% 1000 ml [Ns] 1,000 ml Med 12/14/24 00:39 Discontinued IV 200 mls/hr Vital Signs Vital signs: Vital Signs Temperature 97.9 F 12/13/24 22:00 Pulse Rate 80 12/13/24 22:00 Respiratory Rate 18 12/13/24 22:00 Blood Pressure 153/80 H 12/13/24 22:00 Pulse Oximetry (%) 95 12/13/24 22:00 Oxygen Delivery Method Room Air 12/13/24 22:00 Abdominal Pain MDM MDM Narrative MDM Narrative:: This section includes all my notes and documentations, including HPI, PE, and ED course. Harvinder Blake MD HPI: 79 y/o female with Hx of Ulcer and GI bleed presents with abdominal pain x 4 hours. No other complaints. ROS: All negative except as documented in HPI. Physical Exam: General: Alert and oriented. No acute distress when remaining still. Eyes: Conjunctivae and lids clear. ENT: No nasal congestion. Neck: Supple. Heart: RRR. Lungs: No respiratory distress. Good air movement. No rhonchi, wheezing, rales. Abdomen: Soft and nontender. Normal bowel sounds. No distension. No rebound or guarding. Back: No CVA tenderness. Skin: Warm and dry. Neuro: Alert and oriented X 3. I reviewed all diagnostic test results: My interpretation of the EKG is: My interpretation of the chest x-ray is: Large retrocardiac gastric hernia. My review of the Gall Bladder US report is: Negative ultrasound for cholelithiasis, acute cholecystitis or biliary ductal obstruction. Diffusely echogenic liver parenchyma is nonspecific. While the finding could represent hepatic steatosis, other differential diagnostic considerations include chronic hepatitis, fibrosis and hemachromatosis in the appropriate clinical settings. My review of the Chest/Abdomen/Pelvis CT report is: Large diaphragmatic defect containing stomach and colon with atelectasis in the right lower lobe. My review of the Head/Brain CT report is: No acute findings. Blood tests and urine tests Covid: Negative. At this point, diagnoses include: Stomach Ulcer Treatment here included: Pepcid 20 mg Lactated Ringer's 1 L IVF 1 L Morphine 2 mg Zofran 4 mg Protonix 40 mg Recommended outpatient treatment. Based on my best medical judgment, made decision no further evaluation or treatment indicated at this time. Patient understands and agrees to the discharge instructions customized and printed, see below. Discharge instructions from Dr. Blake: ?After evaluation, your symptoms are due to stomach ulcer (see attached handout).? There is no emergency such as appendicitis needing emergent surgery. ?To help heal the ulcer, take Omeprazole 40 mg every morning and Famotidine 40 mg at bedtime for a month. ?Zofran for nausea/vomiting.? Clear liquid diet for 24 hours.? Then slowly advance diet as tolerated. ?Avoid food and beverages that can trigger and worsen ulcers.? See attached handout. ?See a private doctor on 12/15/2024. Ask to review all test results and official radiology reports, to make sure you receive all necessary follow-ups and monitoring. To make sure there is no serious intra-abdominal condition, ask for help with more investigation not available here in the ER.? Such as EGD or scoping the stomach, colonoscopy or scoping the colon, and referral to see financial agent. And ask for referral to see a surgeon, to discuss elective surgery of the hiatal hernia. ?Seek immediate medical care with worsening or with any concerns. Harvinder Blake MD Patient data External records reviewed:: [facility] previous records (Reviewed prior ED records from 04/30/21. Patient was seen for GI bleed.) Clinical information provided by:: patient Social determinants that could affect healthcare access:: none Patient has the following chronic illnesses:: Peripheral Neuropathy, Hypertension, Ulcer, Hiatal Hernia, GI Bleed, Spinal Stenosis, Arthritis, Scoliosis, Cataracts, and Deafness How is presenting disease/condition affected by chronic disease/condition?: exacerbated by Evaluation data The following diagnostics were reviewed and interpreted by me:: lab results, radiology exam(s) and EKG tracing(s) Lab and/or radiology exams considered but not ordered:: None Interpretation Summary: I reviewed all diagnostic test results: My interpretation of the chest x-ray is: Large retrocardiac gastric hernia. My review of the Gall Bladder US report is: Negative ultrasound for cholelithiasis, acute cholecystitis or biliary ductal obstruction. Diffusely echogenic liver parenchyma is nonspecific. While the finding could represent hepatic steatosis, other differential diagnostic considerations include chronic hepatitis, fibrosis and hemachromatosis in the appropriate clinical settings. My review of the Chest/Abdomen/Pelvis CT report is: Large diaphragmatic defect containing stomach and colon with atelectasis in the right lower lobe. My review of the Head/Brain CT report is: No acute findings. Blood tests and urine tests Covid: Negative. Medications / Prescriptions Medications or Prescriptions considered but not ordered:: None Medication administrations:: Medication Administration History Discontinued Medications Famotidine (Famotidine Inj 10 Mg/Ml Vial 2 Ml) 20 mg IVP X1 ONE Stop: 12/13/24 22:35 Last Admin: 12/13/24 23:03 Dose: 20 mg Documented By: DT Lactated Ringer's (Lactated Ringers) 1,000 mls @ 1,000 mls/hr IV .Q1H ONE Stop: 12/13/24 23:32 Last Infusion: 12/14/24 00:30 Dose: Infused Documented By: Admin: 12/13/24 23:10 Dose: 1,000 mls/hr Documented By: DT Sodium Chloride (Ns) 1,000 mls @ 200 mls/hr IV .Q5H ONE Stop: 12/14/24 05:38 Last Admin: 12/14/24 01:14 Dose: 200 mls/hr Documented By: DT Morphine Sulfate (Morphine Sulf Inj 4 Mg/Ml Vial) 2 mg IV X1 ONE Stop: 12/13/24 22:35 Last Admin: 12/13/24 22:58 Dose: 2 mg Documented By: DT Ondansetron HCl (Ondansetron Inj 2 Mg/Ml Inj 2 Ml) 4 mg IVP X1 ONE; Protocol Stop: 12/13/24 22:35 Last Admin: 12/13/24 22:57 Dose: 4 mg Documented By: DT Pantoprazole Sodium (Pantoprazole Inj 40 Mg Vial) 40 mg IVP X1 ONE Stop: 12/13/24 22:35 Last Admin: 12/13/24 23:02 Dose: 40 mg Documented By: DT Pepcid 20 mg Lactated Ringer's 1 L IVF 1 L Morphine 2 mg Zofran 4 mg Protonix 40 mg Consultations Consultation(s) initiated? (list below): No Diagnosis Differential diagnosis abdominal pain: other (Peptic Ulcer, Gastritis, GERD, H. Pylori, COVID, Influenza) Most likely diagnosis given after review of the tests above:: Stomach Ulcer Admission Indicated Admission indicated?: not indicated Explain why admission is indicated or not indicated:: With significant improvement and no condition needing emergent intervention, there was no indication for admission. Admission Request Was there a request for admission?: No Disposition Plan Disposition Plan: Discharge Discharge Attestation Discharge Attestation: The patient and all family members were given an opportunity to ask questions and understood the discharge instructions. Discharge instructions specifically effects, indications for sooner follow up or return to the emergency department, and the expected course of current diagnosis. Patient condition: Stable Discharge Plan Plan Patient Disposition: HOME (Self Care) Prescriptions/Referrals Prescriptions/Med Rec: New famotidine 40 mg tablet 40 mg PO .bedtime Qty: 30 0RF omeprazole 40 mg capsule,delayed release(DR/EC) 40 mg PO QDAY Qty: 30 0RF ondansetron 4 mg tablet,disintegrating 4 mg PO TID PRN (Reason: nausea and vomiting) 30 Days Qty: 10 0RF No Action amlodipine [Norvasc] 5 MG tablet 5 mg PO QDAY Qty: 0 gabapentin 600 mg tablet 600 mg PO TID calcitriol 0.25 mcg Capsule 0.25 mcg PO MWF hydrocodone-acetaminophen 10-325 mg tablet 0.5 tab PO DAILY PRN (Reason: Pain) Patient Comments: TAKE 1/2 TABLET BY MOUTH EVERY DAY NEEDED FOR PAIN tamoxifen 20 mg tablet 20 mg PO DAILY Patient Comments: TAKE 1 TABLET BY MOUTH EVERY DAY Referrals: Rivas Burton MD [Primary Care Provider, Nephrology] - In 1 week Problem List Clinical Impression: Stomach ulcer Patient/Caregiver Discharge Instructions Discharge Activity: activity as tolerated Education Materials: ED PUD Additional Instructions: Discharge instructions from Dr. Blake: ?After evaluation, your symptoms are due to stomach ulcer (see attached handout).? There is no emergency such as appendicitis needing emergent surgery. ?To help heal the ulcer, take Omeprazole 40 mg every morning and Famotidine 40 mg at bedtime for a month. ?Zofran for nausea/vomiting.? Clear liquid diet for 24 hours.? Then slowly advance diet as tolerated. ?Avoid food and beverages that can trigger and worsen ulcers.? See attached handout. ?See a private doctor on 12/15/2024. Ask to review all test results and official radiology reports, to make sure you receive all necessary follow-ups and monitoring. To make sure there is no serious intra-abdominal condition, ask for help with more investigation not available here in the ER.? Such as EGD or scoping the stomach, colonoscopy or scoping the colon, and referral to see financial agent. And ask for referral to see a surgeon, to discuss elective surgery of the hiatal hernia. ?Seek immediate medical care with worsening or with any concerns. Instrucciones de adarsh del Dr. Blake: ?Tras la evaluaci?n, satya s?ntomas se deben a tl ?lcera estomacal (sonny folleto adjunto). No se trata de tl emergencia, merry apendicitis, que requiera cirug?a urgente. ?Para ayudar a cicatrizar la ?lcera, tome 40 mg de omeprazol cada ma?teo y 40 mg de famotidina antes de acostarse melany un mes. ?Para las n?useas y los v?mitos, tome Zofran. Siga tl dieta l?quida chris melany 24 horas. Posteriormente, vaya introduciendo gradualmente nuevos alimentos seg?n kitchen tolerancia. ?Evite los alimentos y bebidas que puedan desencadenar o empeorar las ?lceras. Consulte el folleto adjunto. ?Consulte a un m?dico particular el 5 de novmb2024. Solicite revisar todos los resultados de las pruebas y los informes radiol?gicos oficiales para asegurarse de recibir el seguimiento y la monitorizaci?n necesarios. Para descartar cualquier afecci?n intraabdominal grave, solicite m?s pruebas diagn?sticas que no est?n disponibles en urgencias. Pruebas merry tl endoscopia digestiva adarsh (DEBBIE) o tl colonoscopia, y la derivaci?n a un gastroenter?logo. Solicite tambi?n tl derivaci?n a un cirujano para hablar sobre la cirug?a electiva de la hernia de hiato. ?Busque atenci?n m?dica inmediata si los s?ntomas empeoran o si tiene alguna inquietud. Print Language: Nepalese Stand Alone Forms: [employer]illa Award Info., Patient Portal Info Letter
== END 2024-12-14 02:53 | disposition home or self-care (01) ==
PROVIDERS: Registered Nurse General Practice; Emergency Provider Emergency Medicine; PCP Internal Medicine
DX: R10.9 Unspecified abdominal pain (principal)
CPT/HCPCS: 36415; 70450; 71045; 71250; 74176; 76705; 80053; 80307; 81001; 82010; 82150; 82248; 83605; 83690; 83735; 83880; 84145; 84443; 84484; 85025; 85610; 85730; 86140; 87040; 87635; 93005; 96361; 96374; 96375; 99284; J2270; J2405; J2470; J3490; J7030; J7120

== ENCOUNTER → 2024-12-22 | Outpatient (CLI) | payer OTHER, SELFPAY ==
[2024-12-22 09:17] LABS: Basophils # (Auto) 0.0 Thou/mm3 (0.0-0.2); Basophils % (Auto) 1 % (0-2.5); Eosinophils # (Auto) 0.1 Thou/mm3 (0.0-0.5); Eosinophils % (Auto) 3 % (0-10); Hematocrit 40.0 % (36.0-46.0); Hemoglobin 13.3 g/dL (12.0-16.0); Immature Granulocytes Auto 0.01 Thou/mm3 (0.00-0.00); Immature Reticulocyte Fraction 8.7 % (3.0-15.9); Lymphocytes # (Auto) 1.3 Thou/mm3 (1.0-4.8); Lymphocytes % (Auto) 32 % (10-50); Mean Corpuscular HGB Conc 33.3 g/dl (31.0-37.0); Mean Corpuscular Hemoglobin 31.4 pg (25.0-35.0); Mean Corpuscular Volume 95 fL (80-100); Monocytes # (Auto) 0.3 Thou/mm3 (0.0-0.8); Monocytes % (Auto) 6 % (0-12); Neutrophils # (Auto) 2.3 Thou/mm3 (1.8-7.7); Neutrophils % (Auto) 58 % (37-80); Nucleated Red Blood Cell # 0.00 Thou/mm3 (0.00-0.00); Nucleated Red Blood Cell % 0 /100 WBC (0); Platelet Count 171 Thou/mm3 (140-440); RDW Standard Deviation 47.8 fL (36.4-46.3); Red Blood Count 4.23 Miln/mm3 (4.00-5.20); Reticulocyte % (Auto) 1.1 % (0.5-1.5); Reticulocyte Absolute Auto 45.7 Biln/L (25.0-75.0); Reticulocyte Hgb Content 34.5 pg (28.0-35.0); White Blood Count 4.1 Thou/mm3 (3.6-11.0)
[2024-12-22 09:44] LABS: Ferritin 27 ng/mL (7.3-270.7); Iron 74 mcg/dL (50-170); Percent Iron Saturation 25 % (20-55); Total Iron Binding Capacity 296 mcg/dL (250-425); Unsaturated Iron Binding 222 (225-295)
[2024-12-22 09:52] LABS: Alanine Aminotransferase 10 U/L (10-49); Albumin, Serum 4.3 gm/dL (3.4-4.8); Albumin/Globulin Ratio 1.9 (1.2-2.2); Alkaline Phosphatase 40 U/L (46-116); Anion Gap 6 (7-16); Aspartate Amino Transferase 23 U/L (0-34); BUN/Creatinine Ratio 15 Ratio (12-20); Bilirubin,Total 0.4 mg/dL (0.3-1.2); Blood Urea Nitrogen 12 mg/dL (9-23); Calcium 9.3 mg/dL (8.3-10.6); Calcium (Corrected) 9.3 mg/dL (8.5-10.1); Carbon Dioxide 30.8 mMol/L (20.0-31.0); Chloride 108 mMol/L (98-107); Creatinine (Component) 0.8 mg/dL (0.6-1.3); Folate > 24.00 ng/mL (>5.38); Globulin 2.3 gm/dL (2.3-3.5); Glucose 106 mg/dL (74-106); LDH (Lactate Dehydrogenase) 155 U/L (120-246); Osmolality,Calculated 288 (275-295); Potassium 4.1 mMol/L (3.4-5.1); Sodium 145 mMol/L (136-145); Total Protein 6.6 gm/dL (5.7-8.2); Vitamin B12 1619 pg/mL (211-911); eGFR > 60 See Note
[2025-01-04 06:37] LABS: Haptoglobin* 64 mg/dL (43-212)
== END | disposition home or self-care (01) ==
LOC: SCTO 08:08
PROVIDERS: PCP Internal Medicine; Referring Provider Nurse Practitioner Family; Visit Provider Nurse Practitioner Family
DX: C50.212 Malignant neoplasm of upper-inner quadrant of left female breast (principal)
CPT/HCPCS: 36415; 80053; 82607; 82728; 82746; 83010; 83540; 83550; 83615; 85025; 85046

== ENCOUNTER 2024-12-23 10:31 | Outpatient (RCR) | payer OTHER, SELFPAY | END 2025-01-09 23:59 | disposition home or self-care (01) | LOC: SCTC 10:31 | PROVIDERS: PCP Internal Medicine; Referring Provider Internal Medicine; Visit Provider Nurse Practitioner Family | DX: C50.212 Malignant neoplasm of upper-inner quadrant of left female breast (principal); Z17.0 Estrogen receptor positive status [ER+]; Z17.21 Progesterone receptor positive status; Z17.32 Human epidermal growth factor receptor 2 negative status; Z79.810 Long term (current) use of selective estrogen receptor modulators (SERMs); K29.70 Gastritis, unspecified, without bleeding; Z86.2 Personal history of diseases of the blood and blood-forming organs and certain disorders involving the immune mechanism; M85.80 Other specified disorders of bone density and structure, unspecified site; H91.90 Unspecified hearing loss, unspecified ear; R41.3 Other amnesia | CPT/HCPCS: 99212; G0463 ==

== ENCOUNTER 2025-01-23 23:41 | Emergency (ER) | payer OTHER, SELFPAY ==
[2025-01-23 23:55] VITALS: BP 158/84; PULSE 98; RESP 20; TEMP 36.5; O2SAT 95
--- NOTE | 2025-01-24 00:03 | EKG_ITS ---
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1945 Requested By: Chung Scanlon Order Number: [id number] Reading MD: Chung Scanlon Measurements Intervals [place] Rate: 87 P: 44 LA: 155 QRS: -65 QRSD: 128 T: 101 QT: 422 QTc: 509 Interpretive Statements SINUS RHYTHM LEFT AXIS DEVIATION [QRS AXIS < -30] LEFT BUNDLE BRANCH BLOCK [120+ ms QRS DURATION, 80+ ms Q/S IN V1/V2, 85+ ms R IN I/aVL/V5/V6] Compared to ECG 12/13/2024 22:24:23 Left bundle-branch block now present Intraventricular conduction delay no longer present Left ventricular hypertrophy no longer present ST (T wave) deviation no longer present Myocardial infarct finding no longer present /store/S0/[id number]/ecg/[id number].pdf
--- NOTE | 2025-01-24 00:04 | PD.EDRME ---
Rapid Medical Screening Exam RME Arrival date/time: 01/23/25 23:41 Chief Complaint: Abdominal Pain Time Seen by Provider: 01/23/25 23:44 Vital signs: Vital Signs Temperature 97.7 F 01/23/25 23:55 Pulse Rate 98 01/23/25 23:55 Respiratory Rate 20 01/23/25 23:55 Blood Pressure 158/84 H 01/23/25 23:55 Pulse Oximetry (%) 95 01/23/25 23:55 Oxygen Delivery Method Room Air 01/23/25 23:55 RME Narrative: Gastric pain, nausea/vomiting x 3 hours. Seen for similar symptoms last month, diagnosed with duodenal ulcer. Patient has appointment with Dr. Clay this upcoming . Denies blood in stools or vomit. Exam: No acute distress Clinical Impression: Abdominal pain, vomiting
[2025-01-24 00:30] VITALS: BMI 22.8
[2025-01-24 00:35] VITALS: BP 149/80; PULSE 80; RESP 20; TEMP 36.8; O2SAT 95
[2025-01-24 00:36] LABS: Basophils # (Auto) 0.0 Thou/mm3 (0.0-0.2); Basophils % (Auto) 0 % (0-2.5); Eosinophils # (Auto) 0.0 Thou/mm3 (0.0-0.5); Eosinophils % (Auto) 0 % (0-10); Hematocrit 44.4 % (36.0-46.0); Hemoglobin 14.5 g/dL (12.0-16.0); Immature Granulocytes Auto 0.02 Thou/mm3 (0.00-0.00); Lymphocytes # (Auto) 0.8 Thou/mm3 (1.0-4.8); Lymphocytes % (Auto) 8 % (10-50); Mean Corpuscular HGB Conc 32.7 g/dl (31.0-37.0); Mean Corpuscular Hemoglobin 30.7 pg (25.0-35.0); Mean Corpuscular Volume 94 fL (80-100); Monocytes # (Auto) 0.2 Thou/mm3 (0.0-0.8); Monocytes % (Auto) 2 % (0-12); Neutrophils # (Auto) 8.0 Thou/mm3 (1.8-7.7); Neutrophils % (Auto) 89 % (37-80); Nucleated Red Blood Cell # 0.00 Thou/mm3 (0.00-0.00); Nucleated Red Blood Cell % 0 /100 WBC (0); Platelet Count 156 Thou/mm3 (140-440); RDW Standard Deviation 45.9 fL (36.4-46.3); Red Blood Count 4.72 Miln/mm3 (4.00-5.20); White Blood Count 9.0 Thou/mm3 (3.6-11.0)
[2025-01-24 00:51] LABS: INR 1.0 (0.9-1.3); Partial Thromboplastin Time 21.0 Seconds (22.0-36.0); Prothrombin Time 10.8 Seconds (9.0-12.2)
[2025-01-24 00:53] LABS: Alanine Aminotransferase 9 U/L (10-49); Albumin, Serum 4.8 gm/dL (3.4-4.8); Albumin/Globulin Ratio 1.5 (1.2-2.2); Alkaline Phosphatase 48 U/L (46-116); Anion Gap 13 (7-16); Aspartate Amino Transferase 21 U/L (0-34); BUN/Creatinine Ratio 17 Ratio (12-20); Bilirubin,Total 0.6 mg/dL (0.3-1.2); Blood Urea Nitrogen 12 mg/dL (9-23); Calcium 9.7 mg/dL (8.3-10.6); Calcium (Corrected) 9.7 mg/dL (8.5-10.1); Carbon Dioxide 23.8 mMol/L (20.0-31.0); Chloride 105 mMol/L (98-107); Creatinine (Component) 0.7 mg/dL (0.6-1.3); Estimated Creatinine Clearance 43.0 mL/min (>60); Globulin 3.3 gm/dL (2.3-3.5); Glucose 180 mg/dL (74-106); Lipase 39 U/L (12-53); Osmolality,Calculated 287 (275-295); Potassium 3.9 mMol/L (3.4-5.1); Sodium 142 mMol/L (136-145); Total Protein 8.1 gm/dL (5.7-8.2); Troponin I < 0.020 ng/mL (0.0-0.045); eGFR > 60 See Note
[2025-01-24] MEDS: MG HYD/AL HYD/SIME (Maalox Reg) SUSP 30 ML UDC PO (01:00)
[2025-01-24] MEDS: LIDOCAINE VISCOUS 2% 15 ML UDC PO (01:00)
[2025-01-24] MEDS: SODIUM CHLORIDE 0.9% 1000 ML 1,000 ML 999 ML IV (01:01)
[2025-01-24] MEDS: ONDANSETRON INJ 2 MG/ML INJ 2 ML 4 MG IVP (01:01)
--- NOTE | 2025-01-24 01:24 | EDNOTE_ITS ---
ED Abdominal Pain RME/HPI General Chief Complaint: Abdominal Pain Stated complaint: ABD PAIN Time seen by provider: 01/23/25 23:44 Arrival date/time: 01/23/25 23:41 Limitations: no limitations RME / HPI RME / HPI narrative: Gastric pain, nausea/vomiting x 3 hours. Seen for similar symptoms last month, diagnosed with duodenal ulcer. Patient has appointment with Dr. Clay this upcoming . Denies blood in stools or vomit. Dr. Renteria?s Main ED Evaluation: 79yo female presents to the ED for a chief complaint of epigastric pain x 1999. No radiation or migration. Patient reports her pain got progressively worse, similar to when she was last evaluated at this facility, so she came in for evaluation. Patient denies any N/V, hematemesis, melena, hematochezia, dysuria, fever, chills, or any other associated symptoms. Denies any previous abdominal surgeries. Patient has an upcoming appointment with Dr. Clay, GI, on 01/27/25. Patient has a history of ulcers, feels like her prior pain. States her symptoms got worse after she ran out of famotidine and omeprazole. Related Data Home Medications ?Medication ?Instructions ?Recorded ?Confirmed amlodipine 5 mg tablet (Norvasc) 5 mg PO QDAY #0 tabs 07/28/14 11/10/23 calcitriol 0.25 mcg capsule 0.25 mcg PO MWF 05/29/20 0 11/10/23 gabapentin 600 mg tablet 600 mg PO TID 04/30/2111/09 Held on 11/10/23. Instructions: Resume on 11/11/23. hydrocodone 10 mg-acetaminophen 0.5 tab PO DAILY PRN P ain 11/10/23 11/10/23 325 mg tablet Held on 11/10/23. Instructions: Resume on 11/11/23. tamoxifen 20 mg tablet 20 mg PO DAILY 11/10/2310/13 Previous Rx's ?Medication ?Instructions ?Recorded famotidine 40 mg tablet 40 mg PO .bedtime #30 tabs 1 02/14/24 omeprazole 40 mg capsule,delayed 40 mg PO QDAY #30 cap s 12/14/24 release famotidine 20 mg tablet 20 mg PO BID #28 tabs 12/15/ 25 omeprazole 40 mg capsule,delayed 40 mg PO QDAY #14 cap s 01/24/25 release Allergies Allergy/AdvReac Type Severity Reaction Status Date / Time tramadol AdvReac Mild Palpitation Verified 01/23/25 23:44 s VITAMIN B12 INJECTION Allergy Severe Swelling Uncoded 01/23/25 23:44 of Lip/Tongue/Throat Review of Systems Review of Systems Systems Reviewed: All systems reviewed, normal except as documented Past Medical History Past Medical History NEUROLOGIC: Positive Neurological Disorders (POSSIBLE DEMENTIA (NOT DIAGNOSED)) and Peripheral Neuropathy; Negative Seizures CARDIAC: Positive Cardiac Disorders (LEFT BBB) and Hypertension; Negative Hypercholesterolemia, Congestive Heart Failure or Edema RESPIRATORY: Negative Chronic Obstructive Pulmonary Disease (COPD), Asthma, Bronchitis or Pneumonia GASTROINTESTINAL: Positive Gastrointestinal Disorders, Ulcer (GI BLEED) and Hiatal Hernia; Negative Hepatitis GENITOURINARY: Negative Genitourinary Disorders or Renal Disease REPRODUCTIVE: Positive Breast Cancer (left) and Previous Pregnancies MUSCULOSKELETAL: Positive Musculoskeletal Disorders (SPINAL STENOSIS), Arthritis and Scoliosis ENT: Positive Cataracts (yancy) and Deafness ([place]) ENDOCRINE: Negative Endocrine Disorders, Diabetes Mellitus Type 1 or Diabetes Mellitus Type 2 HEMATOLOGIC: Negative Blood Disorders or Anemia PSYCHO/SOCIAL: Negative Depression or Anxiety OTHER HISTORY: Positive Hospitalization (bleeding ulcer), Chicken Pox, Measles, Mumps, Cancer and Breast Cancer (left); Negative Autoimmune Disease, Shingles, Falls, Anesthesia Reactions or MRSA Family History FAMILY HISTORY: Negative Family Psychiatric Problems, Family Respiratory Disorders, Family Cardiac Disorders, Family Gastrointestinal Problems, Family Cancer, Family Surgery or Family Anesthesia Reaction Surgical History SURGICAL: Positive Abdominal Surgery (GI BLEED), Mastectomy (LEFT), Lumpectomy (MASECTOMY) and Hysterectomy Social History SMOKING STATUS: Never smoker ED Exam General Limitations: Present no limitations General appearance: Present alert and in no apparent distress Head Head exam: Present atraumatic Eye Eye exam: Present normal appearance, PERRL and EOMI ENT ENT exam: Present normal exam, normal oropharynx and mucous membranes moist Neck Neck exam: Present normal inspection, full ROM and trachea midline Chest Chest inspection: Present normal inspection and symmetric chest wall rise Respiratory Respiratory exam: Present normal lung sounds bilaterally Cardiovascular Cardiovascular exam: Present regular rate and normal rhythm Abdominal Exam Abdominal exam: Present soft and tenderness (Minimal epigastric tenderness to palpation, no rebound or guarding); Absent distention, guarding or rebound Extremities Exam Extremities exam: Present normal inspection and full ROM Back Exam Back exam: Present normal inspection and full ROM Neurological Exam Neurological exam: Present alert, oriented X3 and CN II-XII intact Psychiatric Psychiatric exam: Present normal affect and normal mood Skin Skin exam: Present warm, dry, intact and normal color Course Quality Measures none Orders Category Date Time Status EKG (ED ONLY) *Do not use* NOW Care 01/24/25 00:04 Completed EKG (ED Only) Stat Exams 01/24/25 00:03 Draft CBC Stat Lab 01/24/25 00:29 Completed CMP [Comprehensive Metabolic Panel] Stat Lab 01/24/25 00:29 Completed Lipase Stat Lab 01/24/25 00:29 Completed Partial Thromboplastin Time Stat Lab 01/24/25 00:29 Completed Prothrombin Time with INR Stat Lab 01/24/25 00:29 Completed Troponin I Stat Lab 01/24/25 00:29 Completed UA [Urinalysis] Stat Lab 01/24/25 00:03 Ordered Famotidine Inj [Pepcid Inj] Med 01/24/25 01:40 Once 20 mg IVP X1 ONE Lidocaine 2% Viscous [Xylocaine 2% Viscous] Med 01/24/25 00:52 Discontinued 15 ml PO X1 ONE Ondansetron Inj [Zofran Inj] Med 01/24/25 00:51 Discontinued 4 mg IVP X1 ONE Pantoprazole Inj [Protonix Inj] Med 01/24/25 00:51 Discontinued 40 mg IVP X1 ONE Sodium Chloride 0.9% 1000 ml [Ns] 1,000 ml Med 01/24/25 00:51 Active IV 999 mls/hr mg Hyd/Al Hyd/Jani Susp [Maalox Susp] Med 01/24/25 00:52 Discontinued 30 ml PO X1 ONE Vital Signs Vital signs: Vital Signs Temperature 97.7 F 01/23/25 23:55 Pulse Rate 98 01/23/25 23:55 Respiratory Rate 20 01/23/25 23:55 Blood Pressure 158/84 H 01/23/25 23:55 Pulse Oximetry (%) 95 01/23/25 23:55 Oxygen Delivery Method Room Air 01/23/25 23:55 Abdominal Pain MDM MDM Narrative MDM Narrative:: Scribe Attestation: 01/24/25 Lauren Kramer am scribing for and in the presence of Dr. Renteria. Patient is an 79-year-old female with medical history notable for gastric ulcers, chronic epigastric pain is in emergency department concerns for epigastric pain. Vital signs and exam as listed. Concern for pancreatitis, ACS, arrhythmia, gastritis, recurrence of gastric ulcer. Patient denies any melena, hematochezia, hematemesis, and less likely bleeding ulcer. Patient without any dysuria, less likely urinary tract infection. Denies any fevers chills, less likely systemic infection. Patient without any right upper quadrant tenderness to palpation, per chart review patient recently had a right upper quadrant ultrasound which was normal. Patient was evaluated by prior provider, they ordered labs and medication for symptom relief. Labs without any acute hematologic or significant metabolic abnormality no evidence of transaminitis, lipase not elevated troponin normal. EKG performed today at 12 12 in the morning, interpreted by me notable for sinus rhythm, heart rate 87, left bundle branch block, normal intervals, nonspecific T wave changes, not a cardiac alert. On my evaluation patient abdomen soft nondistended minimal epigastric tenderness palpation, no rebound or guarding. Given that patient has a known history of gastric ulcers, and had a recent ultrasound that did not identify any evidence of gallbladder pathology, had joint decision made conversation with the patient, we will hold off on ultrasound at this time . Patient does have an appointment with Dr. Clay our asphalt tamper this week. I advised him to follow-up with Dr. Clay, eat a bland diet, avoid spicy foods or anything else that could be triggering her symptoms. Given that her symptoms previously improved with the omeprazole and famotidine I have represcribed these for the patient. On my reassessment patient is hemodynamically stable not distress symptoms well-controlled tolerating oral intake will discharge to home close return precautions and follow-up with her providers. Patient data External records reviewed:: [facility] previous records (Per chart review, patient was seen here on 12/13/24 for a stomach ulcer.) Clinical information provided by:: patient and family (son) Social determinants that could affect healthcare access:: none Patient has the following chronic illnesses:: HTN, gastric ulcer How is presenting disease/condition affected by chronic disease/condition?: exacerbated by Evaluation data The following diagnostics were reviewed and interpreted by me:: lab results and EKG tracing(s) Lab and/or radiology exams considered but not ordered:: none Interpretation Summary: See MDM. Medications / Prescriptions Medications or Prescriptions considered but not ordered:: none Medication administrations:: Medication Administration History Famotidine (Famotidine Inj 10 Mg/Ml Vial 2 Ml) 20 mg IVP X1 ONE Stop: 01/24/25 01:41 Sodium Chloride (Ns) 1,000 mls @ 999 mls/hr IV .Q1H1M ONE Stop: 01/24/25 01:51 Last Admin: 01/24/25 01:01 Dose: 999 mls/hr Documented By: GEO Discontinued Medications Al Hydrox/Mg Hydrox/Simethicone (Mg Hyd/Al Hyd/Jani (Maalox Reg) Susp 30 Ml Udc) 30 ml PO X1 ONE Stop: 01/24/25 00:53 Last Admin: 01/24/25 01:00 Dose: 30 ml Documented By: GEO Lidocaine HCl (Lidocaine Viscous 2% 15 Ml Udc) 15 ml PO X1 ONE Stop: 01/24/25 00:53 Last Admin: 01/24/25 01:00 Dose: 15 ml Documented By: GEO Ondansetron HCl (Ondansetron Inj 2 Mg/Ml Inj 2 Ml) 4 mg IVP X1 ONE; Protocol Stop: 01/24/25 00:52 Last Admin: 01/24/25 01:01 Dose: 4 mg Documented By: GEO Pantoprazole Sodium (Pantoprazole Inj 40 Mg Vial) 40 mg IVP X1 ONE Stop: 01/24/25 00:52 Last Admin: 01/24/25 01:00 Dose: 40 mg Documented By: GEO see above Consultations Consultation(s) initiated? (list below): No Diagnosis Differential diagnosis abdominal pain: diverticulitis, pancreatitis and other (gastritis, GERD) Most likely diagnosis given after review of the tests above:: see clinical impression below Admission Indicated Admission indicated?: not indicated Admission Request Was there a request for admission?: No Disposition Plan Disposition Plan: Discharge Discharge Attestation Discharge Attestation: The patient and all family members were given an opportunity to ask questions and understood the discharge instructions. Discharge instructions specifically effects, indications for sooner follow up or return to the emergency department, and the expected course of current diagnosis. Patient condition: Stable Discharge Plan Plan Patient Disposition: HOME (Self Care) Prescriptions/Referrals Prescriptions/Med Rec: New omeprazole 40 mg capsule,delayed release(DR/EC) 40 mg PO QDAY Qty: 14 0RF famotidine 20 mg tablet 20 mg PO BID Qty: 28 0RF No Action amlodipine [Norvasc] 5 MG tablet 5 mg PO QDAY Qty: 0 gabapentin 600 mg tablet 600 mg PO TID calcitriol 0.25 mcg Capsule 0.25 mcg PO MWF famotidine 40 mg tablet 40 mg PO .bedtime Qty: 30 0RF omeprazole 40 mg capsule,delayed release(DR/EC) 40 mg PO QDAY Qty: 30 0RF hydrocodone-acetaminophen 10-325 mg tablet 0.5 tab PO DAILY PRN (Reason: Pain) Patient Comments: TAKE 1/2 TABLET BY MOUTH EVERY DAY NEEDED FOR PAIN tamoxifen 20 mg tablet 20 mg PO DAILY Patient Comments: TAKE 1 TABLET BY MOUTH EVERY DAY Problem List Clinical Impression: Acute epigastric pain Patient/Caregiver Discharge Instructions Education Materials: Understanding Gastric Ulcers Additional Instructions: I am glad that your symptoms improved with the medications that we provided for you here in the emergency department. Your labs today did not identify any acute hematologic your labs today did not identify any evidence of an acute infection, or significant abnormalities. Your metabolic panel was also normal, no evidence of liver or kidney or cardiac dysfunction. Given that your symptoms started after your omeprazole and famotidine ran out, I have prescribed these medications for you. I recommend that you avoid acidic foods, citrus, fatty foods, soda, alcohol or anything else that can cause irritation to your stomach. Is important that you follow-up with a asphalt tamper Dr. Clay at your appointment this . If your symptoms worsen or you have any other symptom of concern please return to the emergency department. Print Language: Slovenian Stand Alone Forms: [facility] Award Info., Patient Portal Info Letter
[2025-01-24 01:45] LABS: Collection Type, Urine Clean Catch
[2025-01-24 01:50] LABS: Bacteria,Urine Rare; Bilirubin,Urine Negative (Negative); Blood,Urine Trace (Negative); Clarity,Urine Clear (Clear/Hazy); Color,Urine Lt-Yellow (Lt Yel-Yel); Glucose, Urine 3+ (Negative); Ketones,Urine 3+ (Negative); Leukocyte Esterase,Urine Positive (Negative); Nitrite,Urine Negative (Negative); PH,Urine 7.0 (5.0-7.0); Protein,Urine Trace (Neg - Trace); RBC,Urine 12 /hpf (0-3); Specific Gravity,Urine 1.016 (1.001-1.035); Squamous Epithelial Cell,Urine 7 /hpf (0-5); Urobilinogen,Urine Negative mg/dL (0.0-1.0); WBC,Urine 8 /hpf (0-5)
[2025-01-24] MEDS: FAMOTIDINE INJ 10 MG/ML VIAL 2 ML 20 MG IVP (02:02)
[2025-01-24 02:04] VITALS: BP 148/64; PULSE 82; RESP 21; O2SAT 94
== END 2025-01-24 02:08 | disposition home or self-care (01) ==
LOC: SERX 01-24 01:34
PROVIDERS: Physician Assistant; Emergency Provider Emergency Medicine; PCP Internal Medicine
DX: R10.13 Epigastric pain (principal)
CPT/HCPCS: 36415; 80053; 81001; 83690; 84484; 85025; 85610; 85730; 93005; 96361; 96374; 96375; 99283; J2405; J2470; J3490; J7030; A9270

== ENCOUNTER 2025-01-24 19:24 | Emergency (ER) | payer OTHER, SELFPAY ==
--- NOTE | 2025-01-24 19:32 | EKG_ITS ---
[facility] Test Date: 2025-01-24 Pat Name: NORMAN FELDER Department: Room: - Gender: Female Customer Experience Strategist: : 1945 Requested By: Chung Scanlon Order Number: [id number] Reading MD: Chung Scanlon Measurements Intervals [place] Rate: 90 P: -3 MD: 148 QRS: -67 QRSD: 130 T: 92 QT: 410 QTc: 504 Interpretive Statements SINUS RHYTHM WITH OCCASIONAL SUPRAVENTRICULAR PREMATURE COMPLEXES POSSIBLE LEFT ATRIAL ENLARGEMENT [-0.1mV P-WAVE IN V1/V2] LEFT AXIS DEVIATION [QRS AXIS < -30] LEFT BUNDLE BRANCH BLOCK [120+ ms QRS DURATION, 80+ ms Q/S IN V1/V2, 85+ ms R IN I/aVL/V5/V6] Compared to ECG 01/24/2025 00:12:47 No significant changes /store/S0/[id number].pdf
[2025-01-24 19:40] VITALS: BP 162/82; PULSE 96; RESP 18; TEMP 36.8; O2SAT 97; BMI 22.8
--- NOTE | 2025-01-24 19:41 | PD.EDRME ---
Rapid Medical Screening Exam RME Arrival date/time: 01/24/25 19:24 Chief Complaint: Abdominal Pain Time Seen by Provider: 01/24/25 19:30 Vital signs: Vital Signs Temperature 98.3 F 01/24/25 19:40 Pulse Rate 96 01/24/25 19:40 Respiratory Rate 18 01/24/25 19:40 Blood Pressure 162/82 H 01/24/25 19:40 Pulse Oximetry (%) 97 01/24/25 19:40 Oxygen Delivery Method Room Air 01/24/25 19:40 E Narrative: Epigastric pain, nausea/vomiting since yesterday. Seen and treated in the ED last night for same Exam: Epigastric tenderness. No acute distress Clinical Impression: Abdominal pain, vomiting
[2025-01-24] MEDS: ONDANSETRON INJ 2 MG/ML INJ 2 ML 4 MG IM (20:14)
--- NOTE | 2025-01-24 20:54 | EDNOTE_ITS ---
ED Abdominal Pain RME/HPI General Chief Complaint: Abdominal Pain Stated complaint: ABD PAIN,N/V Time seen by provider: 01/24/25 19:30 Arrival date/time: 01/24/25 19:24 Limitations: no limitations RME / HPI RME / HPI narrative: Epigastric pain, nausea/vomiting since yesterday. Seen and treated in the ED last night for same Dr. Renteria?s Main ED Evaluation: 79yo female with a history of mild dementia, HTN, gastric ulcer presents to the ED for a chief complaint of epigastric pain x yesterday. Patient was seen here earlier this morning for the same complaint. Patient states her symptoms returned after she was discharged and was concerned due to worsening pain, so she came back in for further evaluation. Patient reports associated N/V with a pinkish color, no blood or coffee-ground color. Denies any fever, chills, or any other associated symptoms. Related Data Home Medications ?Medication ?Instructions ?Recorded ?Confirmed amlodipine 5 mg tablet (Norvasc) 5 mg PO QDAY #0 tabs 07/28/14 11/10/23 calcitriol 0.25 mcg capsule 0.25 mcg PO MWF 05/29/20 0 11/10/23 gabapentin 600 mg tablet 600 mg PO TID 04/30/2111/09 Held on 11/10/23. Instructions: Resume on 11/11/23. hydrocodone 10 mg-acetaminophen 0.5 tab PO DAILY PRN P ain 11/10/23 11/10/23 325 mg tablet Held on 11/10/23. Instructions: Resume on 11/11/23. tamoxifen 20 mg tablet 20 mg PO DAILY 11/10/2310/13 Previous Rx's ?Medication ?Instructions ?Recorded famotidine 40 mg tablet 40 mg PO .bedtime #30 tabs 1 02/14/24 omeprazole 40 mg capsule,delayed 40 mg PO QDAY #30 cap s 12/14/24 release famotidine 20 mg tablet 20 mg PO BID #28 tabs omeprazole 40 mg capsule,delayed 40 mg PO QDAY #14 cap s 01/24/25 release Allergies Allergy/AdvReac Type Severity Reaction Status Date / Time tramadol AdvReac Mild Palpitation Verified 01/23/25 23:44 s VITAMIN B12 INJECTION Allergy Severe Swelling Uncoded 01/23/25 23:44 of Lip/Tongue/Throat Review of Systems Review of Systems Systems Reviewed: All systems reviewed, normal except as documented Past Medical History Past Medical History NEUROLOGIC: Positive Neurological Disorders (POSSIBLE DEMENTIA (NOT DIAGNOSED)) and Peripheral Neuropathy; Negative Seizures CARDIAC: Positive Cardiac Disorders (LEFT BBB) and Hypertension; Negative Hypercholesterolemia, Congestive Heart Failure or Edema RESPIRATORY: Negative Chronic Obstructive Pulmonary Disease (COPD), Asthma, Bronchitis or Pneumonia GASTROINTESTINAL: Positive Gastrointestinal Disorders, Ulcer (GI BLEED) and Hiatal Hernia; Negative Hepatitis GENITOURINARY: Negative Genitourinary Disorders or Renal Disease REPRODUCTIVE: Positive Breast Cancer (left) and Previous Pregnancies MUSCULOSKELETAL: Positive Musculoskeletal Disorders (SPINAL STENOSIS), Arthritis and Scoliosis ENT: Positive Cataracts (yancy) and Deafness ([place]) ENDOCRINE: Negative Endocrine Disorders, Diabetes Mellitus Type 1 or Diabetes Mellitus Type 2 HEMATOLOGIC: Negative Blood Disorders or Anemia PSYCHO/SOCIAL: Negative Depression or Anxiety OTHER HISTORY: Positive Hospitalization (bleeding ulcer), Chicken Pox, Measles, Mumps, Cancer and Breast Cancer (left); Negative Autoimmune Disease, Shingles, Falls, Anesthesia Reactions or MRSA Family History FAMILY HISTORY: Negative Family Psychiatric Problems, Family Respiratory Disorders, Family Cardiac Disorders, Family Gastrointestinal Problems, Family Cancer, Family Surgery or Family Anesthesia Reaction Surgical History SURGICAL: Positive Abdominal Surgery (GI BLEED), Mastectomy (LEFT), Lumpectomy (MASECTOMY) and Hysterectomy Social History SMOKING STATUS: Never smoker ED Exam General Limitations: Present no limitations General appearance: Present alert and in no apparent distress Head Head exam: Present atraumatic Eye Eye exam: Present normal appearance, PERRL and EOMI ENT ENT exam: Present normal exam, normal oropharynx and mucous membranes moist Neck Neck exam: Present normal inspection, full ROM and trachea midline Chest Chest inspection: Present normal inspection and symmetric chest wall rise Respiratory Respiratory exam: Present normal lung sounds bilaterally; Absent respiratory distress Cardiovascular Cardiovascular exam: Present regular rate and normal rhythm Abdominal Exam Abdominal exam: Present soft and tenderness (epigastric); Absent distention, guarding or rebound Extremities Exam Extremities exam: Present normal inspection and full ROM Back Exam Back exam: Present normal inspection and full ROM Neurological Exam Neurological exam: Present alert and other (no FND) Psychiatric Psychiatric exam: Present normal affect and normal mood Skin Skin exam: Present warm, dry, intact and normal color Course Quality Measures none Orders Category Date Time Status CT Screening NOW Care 01/24/25 21:25 Active EKG (ED ONLY) *Do not use* NOW Care 01/24/25 19:33 Completed MRI Screening NOW Care 01/24/25 23:[address] angio chest abdomen pelvis Stat Exams 01/24/25 21:25 Completed EKG (ED Only) Stat Exams 01/24/25 19:32 Draft MR MRCP Stat Exams 01/24/25 Ordered US abdomen limited Stat Exams 01/24/25 20:54 Completed Blood Culture (Lab) Stat Lab 01/25/25 01:57 Received CBC Stat Lab 01/24/25 20:33 Completed CMP [Comprehensive Metabolic Panel] Stat Lab 01/24/25 20:33 Completed Lactate (Lactic Acid) Stat Lab 01/24/25 23:48 Results Lipase Stat Lab 01/24/25 20:33 Completed Troponin I Stat Lab 01/24/25 20:33 Completed UA [Urinalysis] Stat Lab 01/25/25 01:04 Completed HYDROcodone*/APAP 5/325 [[place]pton 5/325] Med 01/24/25 19:45 Discontinued 1 tab PO X1 ONE Ondansetron Inj [Zofran Inj] Med 01/24/25 19:45 Discontinued 4 mg IM X1 ONE Ringers Lactated 1000 ml [Lactated Ringers] 1,000 ml Med 01/24/25 23:26 Discontinued IV 999 mls/hr Ringers Lactated 1000 ml [Lactated Ringers] 1,000 ml Med 01/25/25 01:27 Discontinued IV 999 mls/hr cefTRIAXone/D5w 1gm IV premix [Rocephin/D5w 1gm IV Med 01/24/25 23:27 Discontinued premix] 1 gm in 50 ml IV STAT metroNIDAZOLE/NS 500 MG IVPB [Flagyl 500 mg IV] Med 01/24/25 23:27 Discontinued 500 mg in 100 ml IV STAT Vital Signs Vital signs: Vital Signs Temperature 98.3 F 01/24/25 19:40 Pulse Rate 96 01/24/25 19:40 Respiratory Rate 18 01/24/25 19:40 Blood Pressure 162/82 H 01/24/25 19:40 Pulse Oximetry (%) 97 01/24/25 19:40 Oxygen Delivery Method Room Air 01/24/25 19:40 Abdominal Pain MDM MDM Narrative MDM Narrative:: Scribe Attestation: 01/24/25 - Sharyn, Lauren Ferreira am scribing for and in the pre sence of Dr. Renteria. Patient is an 79-year-old female that seen emerged ferment with concerns for recurrent worsening abdominal pain. Vital signs and exam as listed. Concern for cholelithiasis, cholecystitis, pancreatitis, mesenteric ischemia among others. Ordered labs, ultrasound, CT abdomen pelvis with contrast. Also ordered EKG concern for possible chest pain equivalent. Offer medication for symptom relief. My evaluation patient abdomen soft, has mild tenderness palpation in the epigastrium, no rebound or guarding, nausea is now well- controlled. Labs without leukocytosis, does have a left shift of 89%, patient does have hyponatremia sodium 146 chloride 108 appears to be fluid down ordered fluids. LFTs normal, troponin not elevated lipase normal. Abdominal ultrasound with findings concerning for possible cholecystitis, antibiotics provided. Ordered lactic acid. Patient has not been febrile. 2329: CT abdomen pelvis with evidence of large diaphragmatic hernia containing stomach and colon and even a portion of the spleen, also concerning for possible gastric volvulus or torsion secondary to the large diaphragmatic hernia defect. The gastric fundus is thickened with edema. Mild free fluid along the spleen. 2330: Placed a consult to Dr. Kowalski funeral professional surgeon, left VM 0004: Discussed case with Dr. nAthony from general surgery regarding consultation. Discussed patients ED course, exam findings, labs, and radiology results. Recommends transferring the patient as she does not perform the service/upper abdominal surgery the patient needs. Does not have any other recommendations at this time. 0123: Discussed case with [facility]'s transfer center. Discussed patients ED course, exam findings, labs, and radiology results. Awaiting on a callback at this time. 0203: CT images were sent at the request of [facility]. 0213: Dr. Sandor Mccann, general surgeon from [facility], accepts the patient for transfer. Patient data External records reviewed:: [facility] previous records (Per chart review, patient was seen here earlier this morning for acute epigastric pain.) Clinical information provided by:: patient Social determinants that could affect healthcare access:: none Patient has the following chronic illnesses:: HTN, gastric ulcer How is presenting disease/condition affected by chronic disease/condition?: exacerbated by Evaluation data The following diagnostics were reviewed and interpreted by me:: lab results and radiology exam(s) Lab and/or radiology exams considered but not ordered:: none Interpretation Summary: [facility] Report Signed Patient: NORMAN FELDER. Record#: [id number] Birthdate: 1945 Age/Sex: 79 / F Location: [facility] Attending Dr: Ordering Physician: Mona Renteria MD Date of Service: 01/24/25 Procedure(s): US abdomen limited Accession Number(s): [id number] cc: Benjamin Hernandez MD; Mona Renteria MD; Rivas Burton MD~ Examination: Abdomen sonogram, Limited Date and time of exam: January 24, 2025, 2133 hours INDICATIONS: Epigastric pain beginning today. TECHNIQUE: Real-time grayscale transabdominal sonographic images upper abdomen FINDINGS: Gallbladder sludge Suspicious for small gallstones Gallbladder wall 0.5 cm Common bile duct 0.3 cm Pancreatic head 1.5 cm Liver 12.7 cm no liver lesions Normal hepatopetal portal venous flow Patent IVC IMPRESSION: Suspicious for cholecystitis, consider HIDA scan or MRCP follow-up Dictated By: Benjamin Hernandez MD Signed By: <Electronically signed by Benjamin Hernandez MD in > 01/24/252224 [facility] Report Signed Patient: NORMAN FELDER [facility]. Record#: [id number] Birthdate: 1945 Age/Sex: 79 / F Location: [facility] Attending Dr: Ordering Physician: Mona Renteria MD Date of Service: 01/24/25 Procedure(s): CT angio chest abdomen pelvis Accession Number(s): [id number] cc: Benjamin Hernandez MD; Mona Renteria MD; Rivas Burton MD~ Examination: CTA chest, with intravenous contrast. CTA abdomen, with intravenous contrast. CTA pelvis, with intravenous contrast. 2-D sagittal and coronal reconstructions. 3-D reconstructions. Date and time of exam: January 24, 2025, 10:17 p.m., comparison December 14, 2024 INDICATIONS: Abdominal pain and distention chest pain today CTDI vol (mgy) 5.52 DLP (MGycm) 346 Technique: Multiple CTA images, 2.0 mm slice thickness, obtained chest, abdomen, pelvis, with the high-resolution 64 slice scanner. 100 cc Isovue-370 is administered intravenously. Sagittal and coronal 2-D reconstructions are obtained. 3-D reconstructions, angiographic images are obtained. 3-D postprocessing, including vascular maximum intensity projections. Low dose protocols were performed. One or more of the following dose reduction techniques were used; automated exposure control, adjustment of the mA and/or KV according to patient size, use of iterative reconstruction technique. Findings: No thoracic aortic aneurysmal dilatation No pulmonary artery emboli. Large diaphragmatic hernia defect containing stomach and colon with a small portion of the spleen The gastric fundus is markedly distended There is a small amount of fluid adjacent to the spleen, axial image 121. Mucosal thickening in the gastric antrum, coronal image 66 Spleen is not enlarged 11 mm pulmonary nodule left upper lobe No lobar pneumonia or pulmonary edema Liver irregular in contour No definite gallstones No pancreatic mass No hydronephrosis Aorta normal size Normal appendix No bowel obstruction No ischemic bowel noted Bladder intact No diverticulitis Pelvic floor laxity Severe osteopenia, severe lumbar dextroscoliosis Moderate to advanced narrowing hip joints IMPRESSION: Negative for pulmonary artery emboli Large diaphragmatic hernia defect containing stomach and colon and even a small portion of the spleen There is marked distention of the gastric fundus with thickening and edema in the gastric antrum, consider gastric volvulus/torsion secondary to the large diaphragmatic hernia defect, recommend surgical consultation Mild free fluid adjacent to the spleen, axial image 121, clinical correlation advised Dictated By: Benjamin Hernandez MD Signed By: <Electronically signed by Benjamin Hernandez MD in [place]> 01/24/25 2042 Medications / Prescriptions Medications or Prescriptions considered but not ordered:: none Medication administrations:: Medication Administration History Discontinued Medications Hydrocodone Bitart/Acetaminophen (Hydrocodone/Apap 5/325 Tablet) 1 tab PO X1 ONE Stop: 01/24/25 19:46 Last Admin: 01/24/25 20:18 Dose: Not Given Documented By: Non-Admin Reason: Patient Refused Lactated Ringer's (Lactated Ringers) 1,000 mls @ 999 mls/hr IV .Q1H1M ONE Stop: 01/25/25 00:26 Last Infusion: 01/25/25 00:57 Dose: Infused Documented By: Admin: 01/24/25 23:55 Dose: 999 mls/hr Documented By: GEO Ceftriaxone Sodium/Dextrose (Rocephin/D5w 1gm Iv Premix) 1 gm in 50 mls @ 100 mls/hr IV STAT STA Stop: 01/24/25 23:56 Last Infusion: 01/25/25 00:28 Dose: Infused Documented By: Admin: 01/24/25 23:55 Dose: 100 mls/hr Documented By: GEO Metronidazole (Flagyl 500 Mg Iv) 500 mg in 100 mls @ 200 mls/hr IV STAT STA Stop: 01/24/25 23:56 Last Infusion: 01/25/25 00:28 Dose: Infused Documented By: Admin: 01/24/25 23:56 Dose: 200 mls/hr Documented By: GEO Lactated Ringer's (Lactated Ringers) 1,000 mls @ 999 mls/hr IV .Q1H1M ONE Stop: 01/25/25 02:27 Last Admin: 01/25/25 01:46 Dose: 999 mls/hr Documented By: GEO Ondansetron HCl (Ondansetron Inj 2 Mg/Ml Inj 2 Ml) 4 mg IM X1 ONE; Protocol Stop: 01/24/25 19:46 Last Admin: 01/24/25 20:14 Dose: 4 mg Documented By: DANIELLA Comments: medication given IM see above Consultations Consultation(s) initiated? (list below): Yes Consultation #1 (Physician, Specialty, Details): Discussed case with Dr. Anthony from general surgery regarding consultation. Discussed patients ED course, exam findings, labs, and radiology results. Recommends transferring the patient as she does not perform the service/upper abdominal surgery the patient needs. Does not have any other recommendations at this time. Time: 00:04 Diagnosis Differential diagnosis abdominal pain: other (See MDM) Most likely diagnosis given after review of the tests above:: stomach volvulus, lactic acidosis, abdominal pain, nausea and vomiting Admission Indicated Admission indicated?: not indicated Explain why admission is indicated or not indicated:: Patient requires a higher [id number]. Admission Request Was there a request for admission?: No Disposition Plan Disposition Plan: Transfer Critical Care Time Critical Care Time Critical Care Time: Yes Total Critical Care Time (min.): 45 Attestation: Due to a high probability of clinically significant, life threatening deteri oration, the patient required my highest level of preparedness to intervene emergently and I personally spent this critical care time directly and personally managing the patient. This critical care time included obtaining a history; examining the patient; pulse oximetry; ordering and review of studies; arranging urgent treatment with development of a management plan; evaluation of patient's response to treatment; frequent reassessment; and, discussions with other providers. This critical care time was performed to assess and manage the high probability of imminent, life-threatening deterioration that could result in multi-organ failure. It was exclusive of separately billable procedures and treating other patients and teaching time. Please see MDM section and the rest of the note for further information on patient assessment and treatment. Discharge Plan Plan Patient Disposition: [facility] Pt Being Transferred to: [facility] Service Needed for Transfer: General Surgery Prescriptions/Referrals Prescriptions/Med Rec: No Action amlodipine [Norvasc] 5 MG tablet 5 mg PO QDAY Qty: 0 gabapentin 600 mg tablet 600 mg PO TID calcitriol 0.25 mcg Capsule 0.25 mcg PO MWF famotidine 40 mg tablet 40 mg PO .bedtime Qty: 30 0RF omeprazole 40 mg capsule,delayed release(DR/EC) 40 mg PO QDAY Qty: 30 0RF hydrocodone-acetaminophen 10-325 mg tablet 0.5 tab PO DAILY PRN (Reason: Pain) Patient Comments: TAKE 1/2 TABLET BY MOUTH EVERY DAY NEEDED FOR PAIN tamoxifen 20 mg tablet 20 mg PO DAILY Patient Comments: TAKE 1 TABLET BY MOUTH EVERY DAY omeprazole 40 mg capsule,delayed release(DR/EC) 40 mg PO QDAY Qty: 14 0RF famotidine 20 mg tablet 20 mg PO BID Qty: 28 0RF Referrals: Rivas Burton MD [Primary Care Provider, Nephrology] - In 1 week Problem List Clinical Impression: Stomach volvulus, Lactic acidosis, Nausea and vomiting, Abdominal pain Patient/Caregiver Discharge Instructions Print Language: Swazi Stand Alone Forms: [facility]illa Award Info., Patient Portal Info Letter
[2025-01-24 20:57] VITALS: BP 158/81; PULSE 89; RESP 20; TEMP 37.1; O2SAT 99
[2025-01-24 21:23] LABS: Basophils # (Auto) 0.0 Thou/mm3 (0.0-0.2); Basophils % (Auto) 0 % (0-2.5); Eosinophils # (Auto) 0.0 Thou/mm3 (0.0-0.5); Eosinophils % (Auto) 0 % (0-10); Hematocrit 42.8 % (36.0-46.0); Hemoglobin 14.2 g/dL (12.0-16.0); Immature Granulocytes Auto 0.03 Thou/mm3 (0.00-0.00); Lymphocytes # (Auto) 0.6 Thou/mm3 (1.0-4.8); Lymphocytes % (Auto) 6 % (10-50); Mean Corpuscular HGB Conc 33.2 g/dl (31.0-37.0); Mean Corpuscular Hemoglobin 31.1 pg (25.0-35.0); Mean Corpuscular Volume 94 fL (80-100); Monocytes # (Auto) 0.4 Thou/mm3 (0.0-0.8); Monocytes % (Auto) 4 % (0-12); Neutrophils # (Auto) 8.7 Thou/mm3 (1.8-7.7); Neutrophils % (Auto) 89 % (37-80); Nucleated Red Blood Cell # 0.00 Thou/mm3 (0.00-0.00); Nucleated Red Blood Cell % 0 /100 WBC (0); Platelet Count 172 Thou/mm3 (140-440); RDW Standard Deviation 46.1 fL (36.4-46.3); Red Blood Count 4.57 Miln/mm3 (4.00-5.20); White Blood Count 9.7 Thou/mm3 (3.6-11.0)
--- NOTE | 2025-01-24 21:25 | XR_ITS ---
Examination: CTA chest, with intravenous contrast. CTA abdomen, with intravenous contrast. CTA pelvis, with intravenous contrast. 2-D sagittal and coronal reconstructions. 3-D reconstructions. Date and time of exam: January 24, 2025, 10:17 p.m., comparison December 14, 2024 INDICATIONS: Abdominal pain and distention chest pain today CTDI vol (mgy) 5.52 DLP (MGycm) 346 Technique: Multiple CTA images, 2.0 mm slice thickness, obtained chest, abdomen, pelvis, with the high-resolution 64 slice scanner. 100 cc Isovue-370 is administered intravenously. Sagittal and coronal 2-D reconstructions are obtained. 3-D reconstructions, angiographic images are obtained. 3-D postprocessing, including vascular maximum intensity projections. Low dose protocols were performed. One or more of the following dose reduction techniques were used; automated exposure control, adjustment of the mA and/or KV according to patient size, use of iterative reconstruction technique. Findings: No thoracic aortic aneurysmal dilatation No pulmonary artery emboli. Large diaphragmatic hernia defect containing stomach and colon with a small portion of the spleen The gastric fundus is markedly distended There is a small amount of fluid adjacent to the spleen, axial image 121. Mucosal thickening in the gastric antrum, coronal image 66 Spleen is not enlarged 11 mm pulmonary nodule left upper lobe No lobar pneumonia or pulmonary edema Liver irregular in contour No definite gallstones No pancreatic mass No hydronephrosis Aorta normal size Normal appendix No bowel obstruction No ischemic bowel noted Bladder intact No diverticulitis Pelvic floor laxity Severe osteopenia, severe lumbar dextroscoliosis Moderate to advanced narrowing hip joints IMPRESSION: Negative for pulmonary artery emboli Large diaphragmatic hernia defect containing stomach and colon and even a small portion of the spleen There is marked distention of the gastric fundus with thickening and edema in the gastric antrum, consider gastric volvulus/torsion secondary to the large diaphragmatic hernia defect, recommend surgical consultation Mild free fluid adjacent to the spleen, axial image 121, clinical correlation advised
[2025-01-24 21:59] LABS: Alanine Aminotransferase 10 U/L (10-49); Albumin, Serum 5.0 gm/dL (3.4-4.8); Albumin/Globulin Ratio 1.6 (1.2-2.2); Alkaline Phosphatase 46 U/L (46-116); Anion Gap 15 (7-16); Aspartate Amino Transferase 24 U/L (0-34); BUN/Creatinine Ratio 23 Ratio (12-20); Bilirubin,Total 0.6 mg/dL (0.3-1.2); Blood Urea Nitrogen 16 mg/dL (9-23); Calcium 10.1 mg/dL (8.3-10.6); Calcium (Corrected) 10.1 mg/dL (8.5-10.1); Carbon Dioxide 23.3 mMol/L (20.0-31.0); Chloride 108 mMol/L (98-107); Creatinine (Component) 0.7 mg/dL (0.6-1.3); Estimated Creatinine Clearance 43.0 mL/min (>60); Globulin 3.1 gm/dL (2.3-3.5); Glucose 177 mg/dL (74-106); Lipase 24 U/L (12-53); Osmolality,Calculated 295 (275-295); Potassium 3.8 mMol/L (3.4-5.1); Sodium 146 mMol/L (136-145); Total Protein 8.1 gm/dL (5.7-8.2); Troponin I < 0.020 ng/mL (0.0-0.045); eGFR > 60 See Note
[2025-01-24 23:30] VITALS: BP 148/76; PULSE 86; RESP 18; TEMP 36.8; O2SAT 98
[2025-01-24 23:54] LABS: Lactate (Lactic Acid) 3.1 mMol/L (0.4-2.0)
[2025-01-24] MEDS: cefTRIAXone/D5w 1gm IV premix 1 GM/50 ML BAG IV (23:55)
[2025-01-24] MEDS: RINGERS LACTATED 1000 ML 1,000 ML 999 ML IV (23:55)
[2025-01-24] MEDS: metroNIDAZOLE/NS 500 MG IVPB 500 MG/100 ML BAG 200 MG IV (23:56)
[2025-01-25 00:20] VITALS: BP 139/72; PULSE 78; RESP 18; TEMP 36.8; O2SAT 96
[2025-01-25 01:23] LABS: Collection Type, Urine Clean Catch
[2025-01-25 01:44] LABS: Bilirubin,Urine Negative (Negative); Blood,Urine 2+ (Negative); Clarity,Urine Clear (Clear/Hazy); Color,Urine Lt-Yellow (Lt Yel-Yel); Glucose, Urine 3+ (Negative); Ketones,Urine 3+ (Negative); Leukocyte Esterase,Urine Negative (Negative); Nitrite,Urine Negative (Negative); PH,Urine 6.0 (5.0-7.0); Protein,Urine 1+ (Neg - Trace); RBC,Urine 17 /hpf (0-3); Specific Gravity,Urine > 1.035 (1.001-1.035); Squamous Epithelial Cell,Urine 1 /hpf (0-5); Urobilinogen,Urine Negative mg/dL (0.0-1.0); WBC,Urine 3 /hpf (0-5)
[2025-01-25] MEDS: RINGERS LACTATED 1000 ML 1,000 ML 999 ML IV (01:46)
--- NOTE | 2025-01-25 02:14 | PC.NURSE ---
[facility] ACCEPTS GENERAL SURGEON JOANN RALPH ED TO ED REPORT TO
[2025-01-25 02:53] LABS: Reflex Lactate? Y
[2025-01-25 03:25] LABS: Lactic Acid, 3 HR 2.7 mMol/L (0.4-2.0)
--- NOTE | 2025-01-25 03:35 | PC.NURSE ---
THIS NURSE TRIED TO CONTACT THE NUMBER LISTED IN PTS CHART NOTE TO GIVE REPORT TO [facility], CALLED 3 TIMES NO RESPONSE
--- NOTE | 2025-01-25 03:39 | PC.NURSE ---
THIS NURSE GAVE REPORT TO [facility] REGARDING THE TRANSFER OF THIS PT
== END 2025-01-25 03:13 | disposition short-term general hospital (02) ==
PROVIDERS: Physician Assistant; Emergency Provider Emergency Medicine; PCP Internal Medicine
DX: K31.89 Other diseases of stomach and duodenum (principal); K44.9 Diaphragmatic hernia without obstruction or gangrene; E87.20 Acidosis, unspecified; R11.2 Nausea with vomiting, unspecified; R10.13 Epigastric pain; I49.1 Atrial premature depolarization; I44.7 Left bundle-branch block, unspecified; I10 Essential (primary) hypertension; Z75.1 Person awaiting admission to adequate facility elsewhere
CPT/HCPCS: 36415; 71275; 74174; 76705; 80053; 81001; 83605; 83690; 84484; 85025; 87040; 93005; 96361; 96365; 96372; 99284; A4649; J0696; J2405; J3490; J7120; Q9967; J1836